=== PATIENT | female | born 1950 | race Caucasian/White ===

== ENCOUNTER → 2018-02-14 08:59 | Outpatient (CLI) | payer MEDICARE, OTHER, SELFPAY ==
[2018-02-14 09:39] LABS: Add Manual Diff / Slide Review NO; Hematocrit 41.9 % (36-46); Hemoglobin 14.3 g/dL (12.0-16.0); Lymphocytes Percent Auto 40.6 % (25-40); Mean Corpuscular HGB Conc 34.1 % (30-36); Mean Corpuscular Hemoglobin 31.7 PG (26-34); Mean Corpuscular Volume 92.9 fL (80-100); Monocytes Percent Auto 10.6 % (3-14); Neutrophils Absolute Auto 1600 /uL (3000-5900); Neutrophils Percent Auto 45.8 % (50-75); Platelet Count 203 X10^3/uL (150-400); Red Blood Cell Count 4.51 X10^6/uL (4.0-5.2); Red Cell Distribution Width 12.8 % (11.6-14.8); White Blood Cell Count 3.4 X10^3/uL (4.5-11.0)
[2018-02-14 09:56] LABS: Alanine Aminotransferase 28 IU/L (9-52); Albumin 4.4 g/dL (3.5-5.0); Albumin Globulin Ratio 1.6 (1.0-2.8); Alkaline Phosphatase 59 U/L (38-126); Aspartate Aminotransferase 26 IU/L (14-36); BUN Creatinine Ratio 24.3 (6-22); Bilirubin Total 0.7 mg/dL (0.2-1.3); Blood Urea Nitrogen 17 mg/dL (7-17); Calcium 9.4 mg/dL (8.4-10.2); Carbon Dioxide 30 mmol/L (22-32); Chloride 101 mmol/L (98-107); Estimated Glomerular Filt Rate > 60.0 mL/min (>60); Globulin 2.8 g/dL (1.7-4.1); Glucose 103 mg/dL (80-110); HEMOLYSIS < 15 (0-50); Potassium 4.8 mmol/L (3.4-5.1); Sodium 140 mmol/L (137-145); Total Protein 7.2 g/dL (6.3-8.2)
== END ==
PROVIDERS: Family Provider Family Medicine; PCP Family Medicine; Visit Provider Specialist
DX: D70.9 Neutropenia, unspecified (principal)
CPT/HCPCS: 36415; 80053; 85025

== ENCOUNTER → 2018-02-22 14:44 | Outpatient (CLI) | payer MEDICARE, OTHER, SELFPAY ==
--- NOTE | 2018-02-22 | DI.MRI.S_ITS ---
PROCEDURE: MR ANKLE LT WO CON INDICATIONS: 67 year-old female with lateral left foot pain since January 29, 2018. TECHNIQUE: Noncontrast sagittal T1 spin echo and T2 fast spin echo with fat saturation, axial proton density fast spin echo and T2 fast spin echo with fat saturation, coronal T1 spin echo and T2 fast spin echo with fat saturation through the ankle/hindfoot. COMPARISON: [facility], CR, XR FOOT 1 OR 2 VIEWS LEFT, 01/30/2018, 15:52. [facility] [place], CR, XR ANKLE 3+ VIEWS LEFT, 01/30/2018, 15:28. [facility] [place], CR, XR FOOT 3+ VIEWS LEFT, 11/07/2017, 9:30. FINDINGS: Skin marker denotes the site of clinical concern. Image quality: Excellent. Bones and joints: No bone marrow contusions or fractures. There is localized marrow edema at the inferolateral aspect of the calcaneocuboid joint. There is patchy bone marrow edema near the medial navicular pole as well. No hindfoot coalitions. No osteochondral injuries of the talar dome. There is patchy talonavicular joint degeneration, with subchondral marrow edema involving the mid navicular body. No pathologic joint effusions. Medial structures: The posterior tibialis, flexor digitorum longus, and flexor hallucis longus tendons are intact. The posterior tibial neurovascular bundle appears normal within the tarsal tunnel, without extrinsic mass effect. The deep layer (anterior and posterior tibiotalar ligaments) and superficial layer (tibionavicular, tibiospring, and tibiocalcaneal ligaments) of the deltoid ligament appear normal. The spring ligament components (superomedial calcaneonavicular, medioplantar oblique calcaneonavicular, and inferoplantar longitudinal ligaments) are intact. Lateral structures: The anterior talofibular, calcaneofibular, and posterior talofibular ligaments appear intact. More superiorly, the anterior and posterior tibiofibular ligaments appear intact, as is the intermalleolar ligament. The tibiofibular syndesmosis is normal in width at 2 mm or less. The peroneus longus and brevis tendons demonstrate normal location and morphology. Adjacent bony peroneal tubercle and retrotrochlear prominence are normal in size. The sinus tarsi demonstrates normal fatty signal, without edema, fibrosis, or cyst formation. Visualized sinus tarsi components (cervical ligament, interosseous talocalcaneal ligament, roots of the inferior extensor retinaculum) appear normal. The calcaneonavicular and calcaneocuboid components of the bifurcate ligament appear intact. The dorsal calcaneocuboid ligament appears intact. Anterior structures: The tibialis anterior, extensor hallucis longus, and extensor digitorum longus tendons appear intact. The dorsal talonavicular ligament appears intact. Posterior and plantar structures: Achilles tendon demonstrates low-grade intrasubstance partial thickness tear within its central portion, extending 1.5 cm up to 4 cm superior to its calcaneal insertion. Medial and lateral bands of the plantar fascia are of normal thickness. No abductor digiti quinti muscle atrophy to suggest Mcmullen neuropathy. IMPRESSION: 1. Patchy bone marrow edema around the calcaneocuboid joint is nonspecific, and may reflect stress reaction or sequelae of evolving joint degeneration. Nearby peroneus longus and brevis tendons both appear intact. 2. Equally nonspecific patchy bone marrow edema near the medial navicular pole. Patchy talonavicular joint degeneration as well, with subchondral marrow edema involving the mid navicular body. 3. Low-grade partial-thickness intrasubstance tear of the distal Achilles tendon. Dictated by: Luis Carlos Feng M.D. on 02/22/2018 at 15:47 Approved by: Luis Carlos Feng M.D. on 02/22/2018 at 16:02
== END ==
PROVIDERS: Family Provider Family Medicine; PCP Family Medicine; Visit Provider Podiatrist
DX: M79.672 Pain in left foot (principal); S86.012A Strain of left Achilles tendon, initial encounter
CPT/HCPCS: 73721

== ENCOUNTER → 2018-02-23 14:59 | Outpatient (CLI) | payer MEDICARE, OTHER, SELFPAY | PROVIDERS: PCP Internal Medicine; Visit Provider Internal Medicine | DX: Z78.0 Asymptomatic menopausal state (principal) | CPT/HCPCS: 77080 ==

== ENCOUNTER 2018-06-05 13:00 | Oncology outpatient (ONC) | payer MEDICARE, OTHER, SELFPAY ==
--- NOTE | 2018-03-05 13:05 | P.PNONC_ITS ---
Assessment and Plan (1) Neutropenia Onset Date: 12/17/15 Current visit: No Status: None 03/05/18 13:04 The patient is a 67 year old Female who is being seen in the clinic 03/05/2018. She carries a diagnosis of chronic neutropenia initially thought to be secondary to nonsteroidal anti-inflammatory use. Neutropenia developed after a complicated knee replacement requiring 2 surgeries. CBC today does demonstrate a very mild neutropenia with a white count of 3.4 ANC 1600 neutrophils 45.8%. Reassuringly patient feels very well. No night sweats. No change in appetite specifically no early satiety. No new pain, no new lumps or bumps. No red flags on exam today whatsoever. I discussed with the patient and her we may never know the etiology of this very mild neutropenia not unlikely she received strong broad-spectrum antibiotics during her 2 knee surgeries. Reassuringly platelets have been normal RBC has been normal hemoglobin and hematocrit also normal. No evidence of bone marrow failure. Return to clinic in 3 months time for provider visit, CBC. 03/05/18 13:40 - Time Spent with Patient 35 mins PN -Subjective Interval history: The patient is a 67 year old Female who is being seen in the clinic 03/05/2018. She carries a diagnosis of chronic neutropenia likely initially thought secondary to heavy NSAID use. She presents today for a 6 month clinical evaluation. During the interval she discontinued her use of Aleve. No new complaints on exam today. Specifically no recent illnesses or infections. No night sweats. No cough, fever, chills. No change with activity tolerance. Appetite is stable, weight is stable. Specifically no early satiety. No new pain. No new lumps or bumps. Overall patient is feeling quite well looking forward to a 1 month vacation to [facility] next month. Past Medical History The patient's past medical history is significant for: 1) Neutropenia, chronic. CBC on 04/18/2014, 12/26/2014, 12/02/2015, 01/18/2016, 03/13/2017, and 2016 (7 days off Alleve) reporting: White blood cell count at 5.4, 3.5, 3.7, 3.7, 3.2, and 4.1 respectively. ANC at 3000, 1900, 1500, 1400, 1700, 2100 respectively. 03/10/2017. Peripheral flow cytometry without significant immunophenotypic abnormalities. 03/13/2017: Sedimentation rate normal at 3, C-reactive protein less than 0.5. Folate and B12 at greater than 20 in 643 respectively. 03/13/2017. Ultrasound of the spleen. No splenomegaly. 2) Aniety/Depression, post knee replacement, improving. 3) Skin cancer, non melanoma. Home Medications and Allergies Home Medications Medication Instructions Recorded Confirmed Type CA PANTOTHENATE/FOLIC ACID/VIT 1 tab PO QDAY #0 10/16/12 History (MULTIVITAMIN) Fish Oil 2,000 mg PO QDAY #0 10/16/12 History [MASSAGE THERAPY] #0 01/09/17 Rx amoxicillin 500 mg PO #0 01/09/17 History aspirin 81 mg PO QDAY #0 01/09/17 History xyjqsqxkmz-oajkvhv-ekvmnwyv 50 1 cap PO PRN PRN #20 cap 01/17/18 Rx mg-325 mg-40 mg capsule [CMP ESTRADIOL ] 0.2 % VAGINAL 2XW #30 gm 01/24/18 Rx cholecalciferol (vitamin D3) 1,000 unit PO DAILY 03/05/18 03/05/18 History [Vitamin D3] chromium picolinate 400 mcg PO DAILY 03/05/18 03/05/18 History glucosamine tran 2KCl-chondroit 1 cap PO DAILY 03/05/18 03/05/18 History [Glucosamine Sulf-Chondroitin] polyethylene glycol 3350 [Miralax] 03/05/18 History Allergies Allergy/AdvReac Type Severity Reaction Status Date / Time No Known Drug Allergies Allergy Unverified 01/24/18 11:37 Exam Narrative: well appearing - Constitutional positive no acute distress - Routine HEENT Exam Eye: Present: EOMI, PERRL, normal accommodation. Absent: scleral injection, conjunctivae pink ENT: Present: mucous membranes moist - Routine Neck Exam Present: supple. Absent: lymphadenopathy - Routine Chest/Breast/Axilla Exam Axillae: Absent: lymphadenopathy, mass, tenderness - Routine Respiratory Exam Present: Clear to auscultation bilaterally - Routine Cardiovascular Exam Present: RRR, S1, S2 - Routine Abdominal Exam Present: soft, normoactive bowel sounds. Absent: tenderness, distended, organomegaly Palpation/Percussion: Absent: hepatomegaly, splenomegaly - Routine Extremities Exam Absent: edema, calf tenderness - Routine Skin Exam Present: intact, normal turgor. Absent: erythema, petechiae, rash - Routine Neurological Exam Present: alert, oriented X3 - Routine Psychiatric Exam Present: normal affect
[2018-03-05 13:08] VITALS: BP 130/88; PULSE 58; RESP 18; TEMP 36.4; O2SAT 97
[2018-06-01 12:53] LABS: Add Manual Diff / Slide Review NO; Basophils Percent Auto 0.7 % (0-2); Eosinophils Percent Auto 1.6 % (2-4); Hematocrit 43.2 % (36-46); Hemoglobin 14.5 g/dL (12.0-16.0); Lymphocytes Percent Auto 37.7 % (25-40); Mean Corpuscular HGB Conc 33.4 % (30-36); Mean Corpuscular Hemoglobin 30.7 PG (26-34); Mean Corpuscular Volume 91.9 fL (80-100); Neutrophils Absolute Auto 2400 /uL (3000-5900); Platelet Count 221 X10^3/uL (150-400); Red Cell Distribution Width 13.3 % (11.6-14.8); White Blood Cell Count 4.8 X10^3/uL (4.5-11.0)
[2018-06-05 13:25] VITALS: BP 128/74; PULSE 67; RESP 18; TEMP 36.4; O2SAT 100
--- NOTE | 2018-06-05 13:27 | ONC.PN ---
PN -Subjective Interval history: Diagnosis: Neutropenia, presumed medication related Previous treatment: None Interval history: The patient is a 67 year old Female who is being seen in the clinic for follow-up of a chronic neutropenia. She initially presented following knee replacement surgery in 2002. There is no obvious etiology for her cytopenias in it was presumed due to NSAIDs. However, despite stopping the medications, her of a neutrophil count has remained low. Fortunately, she has not had any infectious complications. She denies any fevers chills or sweats. No shortness of breath or cough. She has not had any unusual bleeding or bruising. Overall, she feels quite well. She reports that she and her have just returned from a trip to [place] and [place]. Her medications include amoxicillin which she takes prior to dental work. She also takes aspirin and medication for migraine headaches as needed. She takes several supplements but no other prescriptions. Her family history is negative for cytopenias or neutropenia. She does have a grandmother had leukemia. 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 She does not smoke but does drink some wine. Past Medical History The patient's past medical history is significant for: 1) Neutropenia, chronic. CBC on 04/18/2014, 12/26/2014, 12/02/2015, 01/18/2016, 03/13/2017, and 03/28/2017 (7 days off Alleve) reporting: White blood cell count at 5.4, 3.5, 3.7, 3.7, 3.2, and 4.1 respectively. ANC at 3000, 1900, 1500, 1400, 1700, 2100 respectively. 03/10/2017. Peripheral flow cytometry without significant immunophenotypic abnormalities. 03/13/2017: Sedimentation rate normal at 3, C-reactive protein less than 0.5. Folate and B12 at greater than 20 in 643 respectively. 03/13/2017. Ultrasound of the spleen. No splenomegaly. 2) Aniety/Depression, post knee replacement, improving. 3) Skin cancer, non melanoma. She has had prior knee replacement surgery with a revision. Home Medications and Allergies Home Medications Medication Instructions Recorded Confirmed Type CA PANTOTHENATE/FOLIC ACID/VIT 1 tab PO QDAY #0 10/16/12 History (MULTIVITAMIN) Fish Oil 2,000 mg PO QDAY #0 10/16/12 History [MASSAGE THERAPY] #0 01/09/17 Rx amoxicillin 500 mg PO #0 01/09/17 History aspirin 81 mg PO QDAY #0 01/09/17 History xisuexzmvq-fpdyimv-wengmnbc 50 1 cap PO PRN PRN #20 cap 01/17/18 Rx mg-325 mg-40 mg capsule [CMP ESTRADIOL ] 0.2 % VAGINAL 2XW #30 gm 01/24/18 Rx cholecalciferol (vitamin D3) 1,000 unit PO DAILY 03/05/18 03/05/18 History [Vitamin D3] chromium picolinate 400 mcg PO DAILY 03/05/18 03/05/18 History glucosamine tran 2KCl-chondroit 1 cap PO DAILY 03/05/18 03/05/18 History [Glucosamine Sulf-Chondroitin] polyethylene glycol 3350 [Miralax] 03/05/18 History Allergies Allergy/AdvReac Type Severity Reaction Status Date / Time No Known Drug Allergies Allergy Unverified 01/24/18 11:37 Exam Vital signs: Last Vital Signs Temp 97.6 F 06/05/18 13:25 Pulse 67 06/05/18 13:25 Resp 18 06/05/18 13:25 BP 128/74 06/05/18 13:25 Pulse Ox 100 06/05/18 13:25 - Constitutional positive no acute distress, positive average body habitus - Routine HEENT Exam Head: Present: normocephalic, atraumatic Eye: Present: EOMI, PERRL. Absent: conjunctival icterus, scleral injection ENT: Present: mucous membranes moist, oropharynx clear - Routine Neck Exam Present: supple. Absent: lymphadenopathy, thyromegaly - Routine Respiratory Exam Present: Clear to auscultation bilaterally. Absent: rales, wheezes - Routine Cardiovascular Exam Present: RRR, S1, S2. Absent: murmur - Routine Abdominal Exam Present: soft, normoactive bowel sounds. Absent: tenderness, organomegaly, mass - Routine Extremities Exam Absent: cyanosis, clubbing, edema - Routine Skin Exam Present: intact. Absent: petechiae, rash - Routine Neurological Exam Present: alert, oriented X3 - Routine Psychiatric Exam Present: normal affect, normal thought process Results - Labs Laboratory Last Values WBC 4.8 X10^3/uL (4.5-11.0) 06/01/18 12:35 RBC 4.70 X10^6/uL (4.0-5.2) 06/01/18 12:35 Hgb 14.5 g/dL (12.0-16.0) 06/01/18 12:35 Hct 43.2 % (36-46) 06/01/18 12:35 MCV 91.9 fL (80-100) 06/01/18 12:35 MCH 30.7 PG (26-34) 06/01/18 12:35 MCHC 33.4 % (30-36) 06/01/18 12:35 RDW 13.3 % (11.6-14.8) 06/01/18 12:35 Plt Count 221 X10^3/uL (150-400) 06/01/18 12:35 Neut % (Auto) 51.0 % (50-75) 06/01/18 12:35 Lymph % (Auto) 37.7 % (25-40) 06/01/18 12:35 [place] % (Auto) 9.0 % (3-14) 06/01/18 12:35 Eos % (Auto) 1.6 % (2-4) L 06/01/18 12:35 Baso % (Auto) 0.7 % (0-2) 06/01/18 12:35 Neut # (Auto) 2400 /uL (2006-2720) L 06/01/18 12:35 Assessment and Plan (1) Neutropenia Onset Date: 12/17/15 Problem details: 67-year-old woman with chronic neutropenia. She fortunately has not had any infectious complications or symptoms related to this. It is possible that it is related to her previous medications although I would expect her counts to improve after stopping. I do not think any further testing or intervention is needed at this point. We will discontinue to follow her expectantly. We will plan on checking her back in about a year so but sooner should her counts change. Current visit: No Status: None
--- NOTE | 2018-06-05 13:32 | P.PNONC_ITS ---
PN -Subjective Interval history: Diagnosis: Neutropenia, presumed medication related Previous treatment: None Interval history: The patient is a 67 year old Female who is being seen in the clinic for follow- up of a chronic neutropenia. She initially presented following knee replacement surgery in 2002. There is no obvious etiology for her cytopenias in it was presumed due to NSAIDs. However, despite stopping the medications, her of a neutrophil count has remained low. Fortunately, she has not had any infectious complications. She denies any fevers chills or sweats. No shortness of breath or cough. She has not had any unusual bleeding or bruising. Overall, she feels quite well. She reports that she and her have just returned from a trip to [place] and [place]. Her medications include amoxicillin which she takes prior to dental work. She also takes aspirin and medication for migraine headaches as needed. She takes several supplements but no other prescriptions. Her family history is negative for cytopenias or neutropenia. She does have a grandmother had leukemia. Social history: She is . A retired medical assistant secretary. She does not smoke but does drink some wine. Past Medical History The patient's past medical history is significant for: 1) Neutropenia, chronic. CBC on 04/18/2014, 12/26/2014, 12/02/2015, 01/18/2016, 03/13/2017, and 2016 (7 days off Alleve) reporting: White blood cell count at 5.4, 3.5, 3.7, 3.7, 3.2, and 4.1 respectively. ANC at 3000, 1900, 1500, 1400, 1700, 2100 respectively. 03/10/2017. Peripheral flow cytometry without significant immunophenotypic abnormalities. 03/13/2017: Sedimentation rate normal at 3, C-reactive protein less than 0.5. Folate and B12 at greater than 20 in 643 respectively. 03/13/2017. Ultrasound of the spleen. No splenomegaly. 2) Aniety/Depression, post knee replacement, improving. 3) Skin cancer, non melanoma. She has had prior knee replacement surgery with a revision. Home Medications and Allergies Home Medications Medication Instructions Recorded Confirmed Type CA PANTOTHENATE/FOLIC ACID/VIT 1 tab PO QDAY #0 10/16/12 History (MULTIVITAMIN) Fish Oil 2,000 mg PO QDAY #0 10/16/12 History [MASSAGE THERAPY] #0 01/09/17 Rx amoxicillin 500 mg PO #0 01/09/17 History aspirin 81 mg PO QDAY #0 01/09/17 History nizkfgvydy-ifcujit-rbugyehd 50 1 cap PO PRN PRN #20 cap 01/17/18 Rx mg-325 mg-40 mg capsule [CMP ESTRADIOL ] 0.2 % VAGINAL 2XW #30 gm 01/24/18 Rx cholecalciferol (vitamin D3) 1,000 unit PO DAILY 03/05/18 03/05/18 History [Vitamin D3] chromium picolinate 400 mcg PO DAILY 03/05/18 03/05/18 History glucosamine tran 2KCl-chondroit 1 cap PO DAILY 03/05/18 03/05/18 History [Glucosamine Sulf-Chondroitin] polyethylene glycol 3350 [Miralax] 03/05/18 History Allergies Allergy/AdvReac Type Severity Reaction Status Date / Time No Known Drug Allergies Allergy Unverified 01/24/18 11:37 Exam Vital signs: Last Vital Signs Temp 97.6 F 06/05/18 13:25 Pulse 67 06/05/18 13:25 Resp 18 06/05/18 13:25 BP 128/74 06/05/18 13:25 Pulse Ox 100 06/05/18 13:25 - Constitutional positive no acute distress, positive average body habitus - Routine HEENT Exam Head: Present: normocephalic, atraumatic Eye: Present: EOMI, PERRL. Absent: conjunctival icterus, scleral injection ENT: Present: mucous membranes moist, oropharynx clear - Routine Neck Exam Present: supple. Absent: lymphadenopathy, thyromegaly - Routine Respiratory Exam Present: Clear to auscultation bilaterally. Absent: rales, wheezes - Routine Cardiovascular Exam Present: RRR, S1, S2. Absent: murmur - Routine Abdominal Exam Present: soft, normoactive bowel sounds. Absent: tenderness, organomegaly, mass - Routine Extremities Exam Absent: cyanosis, clubbing, edema - Routine Skin Exam Present: intact. Absent: petechiae, rash - Routine Neurological Exam Present: alert, oriented X3 - Routine Psychiatric Exam Present: normal affect, normal thought process Results - Labs Laboratory Last Values WBC 4.8 X10^3/uL (4.5-11.0) 06/01/18 12:35 RBC 4.70 X10^6/uL (4.0-5.2) 06/01/18 12:35 Hgb 14.5 g/dL (12.0-16.0) 06/01/18 12:35 Hct 43.2 % (36-46) 06/01/18 12:35 MCV 91.9 fL (80-100) 06/01/18 12:35 MCH 30.7 PG (26-34) 06/01/18 12:35 MCHC 33.4 % (30-36) 06/01/18 12:35 RDW 13.3 % (11.6-14.8) 06/01/18 12:35 Plt Count 221 X10^3/uL (150-400) 06/01/18 12:35 Neut % (Auto) 51.0 % (50-75) 06/01/18 12:35 Lymph % (Auto) 37.7 % (25-40) 06/01/18 12:35 [place] % (Auto) 9.0 % (3-14) 06/01/18 12:35 Eos % (Auto) 1.6 % (2-4) L 06/01/18 12:35 Baso % (Auto) 0.7 % (0-2) 06/01/18 12:35 Neut # (Auto) 2400 /uL (2375-1390) L 06/01/18 12:35 Assessment and Plan (1) Neutropenia Onset Date: 12/17/15 Problem details: 67-year-old woman with chronic neutropenia. She fortunately has not had any infectious complications or symptoms related to this. It is possible that it is related to her previous medications although I would expect her counts to improve after stopping. I do not think any further testing or intervention is needed at this point. We will discontinue to follow her expectantly. We will plan on checking her back in about a year so but sooner should her counts change. Current visit: No Status: None
== END 2018-06-06 12:00 ==
PROVIDERS: PCP Internal Medicine; Visit Provider Nurse Practitioner Gerontology
DX: D70.9 Neutropenia, unspecified (principal); Z85.828 Personal history of other malignant neoplasm of skin
CPT/HCPCS: 36415; 85025; 99214

== ENCOUNTER → 2018-11-15 09:20 | Outpatient (CLI) | payer MEDICARE, OTHER, SELFPAY ==
--- NOTE | 2018-11-15 | DI.MG.S_ITS ---
BILATERAL DIGITAL SCREENING MAMMOGRAM 3D/2D WITH CAD: 11/15/2018 CLINICAL: Routine screening. Family history of breast cancer. Comparison is made to exams dated: 11/13/2017 mammogram, 10/24/2016 mammogram, and 12/07/2015 mammogram - [facility]. There are scattered fibroglandular elements in both breasts. Current study was also evaluated with a Computer Aided Detection (CAD) system. No significant masses, calcifications, or other findings are seen in either breast. There has been no significant interval change. IMPRESSION: NEGATIVE There is no mammographic evidence of malignancy. A 1 year screening mammogram is recommended. This exam was interpreted at Station ID: [id number]. NOTE: For mammograms, a report in lay terms will be sent to the patient. Approximately 15% of breast malignancies will not be visualized mammographically. In the management of a palpable breast mass, a negative mammogram must not discourage biopsy of a clinically suspicious lesion. Electronically Signed By: Juan F pena/alvaro:11/15/2018 10:58:08 copy to: Nic Ennis letter sent: Normal Exam ACR BI-RADS Category 1: Negative [id number]
== END ==
PROVIDERS: PCP Family Medicine; Visit Provider Obstetrics & Gynecology
DX: Z12.31 Encounter for screening mammogram for malignant neoplasm of breast (principal); Z80.3 Family history of malignant neoplasm of breast
CPT/HCPCS: 77063; 77067

== ENCOUNTER 2018-12-03 13:45 | Outpatient (RCR) | payer MEDICARE, OTHER, SELFPAY ==
--- NOTE | 2018-09-26 16:50 | PT.OIE ---
Current Diagnoses Radiculopathy, lumbar region (09/26/18) Past Medical History (Last Updated 05/11/18 @ 11:18 by Haley Germain) Anxiety (Chronic 2013) Bilateral knee pain (Chronic 2006) Constipation (Chronic) Depression (Chronic) Dry eyes (Chronic) Heart disease (Chronic) Hemorrhoids (Chronic 1978) History of headache (Chronic 1974) Migraine (Chronic 1974) Milium (Chronic) Osteoarthritis (Chronic) Photoaging of skin (Chronic) Seborrheic keratoses (Chronic) Shoulder pain (Chronic 2010) Solar elastosis (Chronic) Actinic keratosis (Resolved 10/2013) Chicken pox (Resolved Unknown) Colon polyps (Resolved 2004) Fibroids (Resolved 1986) History of irregular menstrual cycles (Resolved ) Measles (Resolved Unknown) Precancerous skin lesion (Resolved 2009) Past Surgical History (Last Updated 05/11/18 @ 11:18 by Haley Germain) History of knee replacement (Resolved 05/21/14) Status post arthroscopy (Resolved 12/11/09) Status post arthroscopy (Resolved 11/04/14) Status post breast biopsy (Resolved 2008) Status post hysterectomy (Resolved 01/1991) Provider Visit Care Team Role Provider Type Angus Jernigan MD Primary Care Provider Non-Staff Specialty: Family Practice Address: [address] [place] [address], [facility] [address], [place], [address] Email: Other Providers Specialty: Address: Phone: Fax: Email: Isaiah Hobbs MD Attending Provider Non-Staff Specialty: Orthopedic Surgery Address: [address] [place] [address], [address], [place], [address] Email: Physical Therapy Initial Evaluation PT-OP-A Visit Information Start: 09/26/18 13:01 Freq: Status: Active Protocol: Document 09/26/18 14:30 AMB (Rec: 09/26/18 16:16 AMB [email or web address]) Out-Patient Physical Therapy Visit Information Visit Information Visit Type Initial Evaluation Visit Start Time 14:30 Visit Stop Time 15:15 Total Visit Minutes 45 Visit Number 1 PT-OP-B Current Condition Start: 09/26/18 13:01 Freq: Status: Active Protocol: Document 09/26/18 14:30 AMB (Rec: 09/26/18 16:16 AMB [email or web address]) Current Condition History of Current Condition Onset Date 1 month ago Current Complaints L knee pain that radiates into hip and numbness into lower leg History of Current Condition Burning and sparking pain in lateral thigh and posterior hip that can go into anterior leg but not into foot has been present for one month. Started in the evening after working out (treadmill, weights, supine ball exercise) but exercise felt good while she was doing it but pain started that evening. Wakes up at night due to the pain. Hurts the most in the medial knee. Knee can feel swollen. Prior Treatments and Tests Saw knee doctor in [place] who says her X-ray is fine and thinks it is coming from her back. Treatment Goals Patient/Caregiver Goals Return to walking Prior Functional Status Baseline Function- Recreation/Hobbies Walking 3-4 miles 4x/week Current Functional Impairments (Reported) Functional Limitations- ADL's Difficulty sleeping, sitting, walking due to pain in knee. Personal Factors Other Personal Factors That May Effect Pt's is undergoing Therapy/Recovery back surgery in 12 days. History of TKA with revision on the left 5 years ago. PT-OP-C Subjective Start: 09/26/18 13:01 Freq: Status: Active Protocol: Document 09/26/18 14:30 AMB (Rec: 09/26/18 16:16 AMB [email or web address]) OP-PT Subjective Patient Comments Patient Comments Pain comes and goes but overall has not been getting worse or better. Patient Questionnaires Oswestry Low Back Index Oswestry Score 20 Oswestry Impairment 20 to 39% Impaired (Score 20- 39) OP-PT Pain Assessment Pain Assessment Grid Paper Pain Assessment Grid Completed Yes Location Left Leg Intensity 7 Scale Used Numeric (1 - 10) Description Aching PT-OP-G Mobility & Gait Start: 09/26/18 13:01 Freq: Status: Active Protocol: Document 09/26/18 14:30 AMB (Rec: 09/26/18 16:31 AMB [email or web address]) OP Gait Assessment Comments Gait Comments Pt ambulating well when not painful, slight restriction in trunk rotation. PT-OP-J Posture/Palpation/Skin Start: 09/26/18 13:01 Freq: Status: Active Protocol: Document 09/26/18 14:30 AMB (Rec: 09/26/18 16:31 AMB [email or web address]) Posture Evaluation Comments Posture Comments Stands with right shoulder high. Mild increased thoracic kyphosis and lumbar lordosis. Palpation Assessment Location One Palpation Location Left leg Palpation Findings Soft Tissue Tightness Muscle Guarding Tenderness Palpation Details Tenderness and tightness L>R at piriformis and IT band. No pain with fibular mobilization. Tightness into knee flexion but this is baseline for the patient s/p TKA. Mildly tender with PAs through lumbar and sacrum, does not radiate. PT-OP-K Range of Motion Start: 09/26/18 13:01 Freq: Status: Active Protocol: Document 09/26/18 14:30 AMB (Rec: 09/26/18 16:31 AMB [email or web address]) Lumbar Spine Range of Motion Lumbar Spine Active Percentage Testing Position Standing Flexion 100 Extension 25 Lateral Flexion Left 50 Lateral Flexion Right 75 Comments pain with extension, stiffness with sidebending bilaterally Hip Goniometric Range of Motion Hip ROM Limitations Comments AROM WNL bilat Knee Goniometric Range of Motion Knee ROM Limitations Comments Extension WNL, flexion limited by TKA to approx 110. PT-OP-L Special Tests Start: 09/26/18 13:01 Freq: Status: Active Protocol: Document 09/26/18 14:30 AMB (Rec: 09/26/18 16:31 AMB [email or web address]) Special Tests Lumbar Spine Special Tests Manual Traction Test Results positive for reduction in pain Straight Leg Raise Test Results negative for increase in pain PT-OP-M Strength Start: 09/26/18 13:01 Freq: Status: Active Protocol: Document 09/26/18 14:30 AMB (Rec: 09/26/18 16:31 AMB [email or web address]) Hip Strength Hip Manual Muscle Testing Right Flexion (L2) 5 Normal Extension (S1) 4 Good Abduction 4+ Good+ Left Flexion (L2) 4+ Good+ Extension (S1) 4- Good- Abduction 4+ Good+ Knee Strength Knee Manual Muscle Testing Right Flexion (S2) 5 Normal Extension (L3) 5 Normal Left Flexion (S2) 5 Normal Extension (L3) 5 Normal PT-OP-Q Treatments Start: 09/26/18 13:01 Freq: Status: Active Protocol: Document 09/26/18 14:30 AMB (Rec: 09/26/18 16:21 AMB [email or web address]) Therapeutic Exercises Supine Exercises 3 Supine Exercise Name lower trunk rotation Reps/Minutes 10 2 Supine Exercise Name TrA march Reps/Minutes 30x2 1 Supine Exercise Name IT band stretch Comments with band PT-OP-T Assessment and Plan Start: 09/26/18 13:01 Freq: Status: Active Protocol: Document 09/26/18 14:30 AMB (Rec: 09/26/18 16:49 AMB [email or web address]) Physical Therapy Assessment Rehab Potential Rehabilitation Potential Good Evaluation Complexity Number of Personal Factors/Comorbidities 1-2 Number of Body Systems Impaired 4 or More Clinical Presentation at Evaluation Evolving Impairments Impairments Functional Activities Pain Posture ROM Soft Tissue Mobility Strength Goals Four Impairment positional tolerance Short Term Goal (STG) The patient will sit for 1 hour with leg pain of 4/10 or less. STG Duration 4 weeks Fabricator Artificial Breast Goal (LTG) The patient will sleep for 6 hours without waking due to pain. LTG Duration 8 weeks Three Impairment body mechanics Short Term Goal (STG) The patient will assist her with bed mobility s/p his lumbar surgery with good body mechanics without an increase in pain. STG Duration 4 weeks Custodial Goal (LTG) The patient will perform a squat with good body mechanics to lift 10 pounds without an increase in pain. LTG Duration 8 weeks Two Impairment gait Short Term Goal (STG) The patient will ambulate for 15 minutes with pain of 4/10 or less. STG Duration 4 weeks Custodial Goal (LTG) The patient will ambulate for 2 miles with pain of 4/10 or less. LTG Duration 8 weeks One Impairment ROM Assessment Summary Assessment The patient presents with L LE pain that is intermittent in nature. Worst at the knee, but with a burning component in the lateral thigh and anterior leg. She also describes piriformis tightness and a history of sciatica on and off since she was in 1979. No testing of the knee reproduced her symptoms, but spinal extension and palpation of the piriformis and IT band did. She presents with good hip mobility ( restricted lumbar into extension), but weakness at hip extension and at core. She will benefit from PT to reduce her radicular pain and then stabilize to get her back to her previous function of walking without pain. Physical Therapy Plan Frequency and Duration Frequency of Treatment 2x/Week Duration of Treatment 8 weeks Plan of Care Start Date 09/26/18 Plan of Care End Date 11/21/18 Therapeutic Interventions Therapeutic Interventions Aquatic Therapy Home Exercise Program Joint Mobilizations Manual Therapy Neuromuscular Re-education Self-Care/Home Management Therapeutic Activities Therapeutic Exercises Modalities Cold Pack/Ice Massage Electric Stimulation Hot Packs Traction- Mechanical Next Visit Focus/Plan Next Note Type Treatment Note Next Visit Plan Progress core stabilization, piriformis stretch, manual therapy as needed for hip/low back tightness.
--- NOTE | 2018-09-26 16:51 | PT.OPPOC ---
Current Diagnoses Radiculopathy, lumbar region (09/26/18) Provider Visit Care Team Role Provider Type Angus Jernigan MD Primary Care Provider Non-Staff Specialty: Family Practice Address: [address] [facility], [address], [place], [address] Email: Other Providers Specialty: Address: Phone: Fax: Email: Isaiah Hobbs MD Attending Provider Non-Staff Specialty: Orthopedic Surgery Address: [address], [address], [place], [address] Email: Plan Of Care PT-OP-T Assessment and Plan Start: 09/26/18 13:01 Freq: Status: Active Protocol: Document 09/26/18 14:30 AMB (Rec: 09/26/18 16:49 AMB [email or web address]) Physical Therapy Assessment Rehab Potential Rehabilitation Potential Good Evaluation Complexity Number of Personal Factors/Comorbidities 1-2 Number of Body Systems Impaired 4 or More Clinical Presentation at Evaluation Evolving Impairments Impairments Functional Activities Pain Posture ROM Soft Tissue Mobility Strength Goals Four Impairment positional tolerance Short Term Goal (STG) The patient will sit for 1 hour with leg pain of 4/10 or less. STG Duration 4 weeks Lens Gauger Goal (LTG) The patient will sleep for 6 hours without waking due to pain. LTG Duration 8 weeks Three Impairment body mechanics Short Term Goal (STG) The patient will assist her with bed mobility s/p his lumbar surgery with good body mechanics without an increase in pain. STG Duration 4 weeks Lens Gauger Goal (LTG) The patient will perform a squat with good body mechanics to lift 10 pounds without an increase in pain. LTG Duration 8 weeks Two Impairment gait Short Term Goal (STG) The patient will ambulate for 15 minutes with pain of 4/10 or less. STG Duration 4 weeks Lens Gauger Goal (LTG) The patient will ambulate for 2 miles with pain of 4/10 or less. LTG Duration 8 weeks One Impairment ROM Assessment Summary Assessment The patient presents with L LE pain that is intermittent in nature. Worst at the knee, but with a burning component in the lateral thigh and anterior leg. She also describes piriformis tightness and a history of sciatica on and off since she was in 1979. No testing of the knee reproduced her symptoms, but spinal extension and palpation of the piriformis and IT band did. She presents with good hip mobility ( restricted lumbar into extension), but weakness at hip extension and at core. She will benefit from PT to reduce her radicular pain and then stabilize to get her back to her previous function of walking without pain. Physical Therapy Plan Frequency and Duration Frequency of Treatment 2x/Week Duration of Treatment 8 weeks Plan of Care Start Date 09/26/18 Plan of Care End Date 11/21/18 Therapeutic Interventions Therapeutic Interventions Aquatic Therapy Home Exercise Program Joint Mobilizations Manual Therapy Neuromuscular Re-education Self-Care/Home Management Therapeutic Activities Therapeutic Exercises Modalities Cold Pack/Ice Massage Electric Stimulation Hot Packs Traction- Mechanical Next Visit Focus/Plan Next Note Type Treatment Note Next Visit Plan Progress core stabilization, piriformis stretch, manual therapy as needed for hip/low back tightness. Plan of Care Dates Plan of Care Start Date 09/26/18 Plan of Care End Date 11/21/18 Please Sign and Return: I have reviewed this Plan of Care and certify that the skilled therapy services above are required to meet the patient?s needs. Physician Signature Date Printed Name and Credentials Clinical Instructor Signature Printed Name and Credentials
--- NOTE | 2018-09-28 10:30 | PT.OTN ---
Current Diagnoses Radiculopathy, lumbar region (09/28/18) Physical Therapy Treatment Note PT-OP-A Visit Information Start: 09/26/18 13:01 Freq: Status: Active Protocol: Document 09/28/18 07:30 AMB (Rec: 09/28/18 07:49 AMB [id number]) Out-Patient Physical Therapy Visit Information Visit Information Visit Type Treatment Note Visit Start Time 07:30 Visit Stop Time 08:15 Total Visit Minutes 45 Visit Number 2 PT-OP-B Current Condition Start: 09/26/18 13:01 Freq: Status: Active Protocol: Document 09/26/18 14:30 AMB (Rec: 09/26/18 16:16 AMB [email or web address]) Current Condition History of Current Condition Onset Date 1 month ago Current Complaints L knee pain that radiates into hip and numbness into lower leg History of Current Condition Burning and sparking pain in lateral thigh and posterior hip that can go into anterior leg but not into foot has been present for one month. Started in the evening after working out (treadmill, weights, supine ball exercise) but exercise felt good while she was doing it but pain started that evening. Wakes up at night due to the pain. Hurts the most in the medial knee. Knee can feel swollen. Prior Treatments and Tests Saw knee doctor in [place] who says her X-ray is fine and thinks it is coming from her back. Treatment Goals Patient/Caregiver Goals Return to walking Prior Functional Status Baseline Function- Recreation/Hobbies Walking 3-4 miles 4x/week Current Functional Impairments (Reported) Functional Limitations- ADL's Difficulty sleeping, sitting, walking due to pain in knee. Personal Factors Other Personal Factors That May Effect Pt's is undergoing Therapy/Recovery back surgery in 12 days. History of TKA with revision on the left 5 years ago. PT-OP-C Subjective Start: 09/26/18 13:01 Freq: Status: Active Protocol: Document 09/28/18 07:30 AMB (Rec: 09/28/18 07:49 AMB [email or web address]) OP-PT Subjective Patient Comments Patient Comments Pt noticed increased sciatica sx after IT band stretch. But slept well last night. PT-OP-G Mobility & Gait Start: 09/26/18 13:01 Freq: Status: Active Protocol: Document 09/26/18 14:30 AMB (Rec: 09/26/18 16:31 AMB [email or web address]) OP Gait Assessment Comments Gait Comments Pt ambulating well when not painful, slight restriction in trunk rotation. PT-OP-J Posture/Palpation/Skin Start: 09/26/18 13:01 Freq: Status: Active Protocol: Document 09/26/18 14:30 AMB (Rec: 09/26/18 16:31 AMB [email or web address]) Posture Evaluation Comments Posture Comments Stands with right shoulder high. Mild increased thoracic kyphosis and lumbar lordosis. Palpation Assessment Location One Palpation Location Left leg Palpation Findings Soft Tissue Tightness Muscle Guarding Tenderness Palpation Details Tenderness and tightness L>R at piriformis and IT band. No pain with fibular mobilization. Tightness into knee flexion but this is baseline for the patient s/p TKA. Mildly tender with PAs through lumbar and sacrum, does not radiate. PT-OP-K Range of Motion Start: 09/26/18 13:01 Freq: Status: Active Protocol: Document 09/26/18 14:30 AMB (Rec: 09/26/18 16:31 AMB [email or web address]) Lumbar Spine Range of Motion Lumbar Spine Active Percentage Testing Position Standing Flexion 100 Extension 25 Lateral Flexion Left 50 Lateral Flexion Right 75 Comments pain with extension, stiffness with sidebending bilaterally Hip Goniometric Range of Motion Hip ROM Limitations Comments AROM WNL bilat Knee Goniometric Range of Motion Knee ROM Limitations Comments Extension WNL, flexion limited by TKA to approx 110. PT-OP-L Special Tests Start: 09/26/18 13:01 Freq: Status: Active Protocol: Document 09/26/18 14:30 AMB (Rec: 09/26/18 16:31 AMB [email or web address]) Special Tests Lumbar Spine Special Tests Manual Traction Test Results positive for reduction in pain Straight Leg Raise Test Results negative for increase in pain PT-OP-M Strength Start: 09/26/18 13:01 Freq: Status: Active Protocol: Document 09/26/18 14:30 AMB (Rec: 09/26/18 16:31 AMB [email or web address]) Hip Strength Hip Manual Muscle Testing Right Flexion (L2) 5 Normal Extension (S1) 4 Good Abduction 4+ Good+ Left Flexion (L2) 4+ Good+ Extension (S1) 4- Good- Abduction 4+ Good+ Knee Strength Knee Manual Muscle Testing Right Flexion (S2) 5 Normal Extension (L3) 5 Normal Left Flexion (S2) 5 Normal Extension (L3) 5 Normal PT-OP-Q Treatments Start: 09/26/18 13:01 Freq: Status: Active Protocol: Document 09/28/18 07:30 AMB (Rec: 09/28/18 10:30 AMB [email or web address]) Cardio Equipment Recumbent Bicycle Duration (Minutes) 8 Resistance 2 Gym Equipment Shuttle Recovery Bilateral Squats Resistance 50 Shuttle Recovery Platform Stable Therapeutic Exercises Supine Exercises 4 Supine Exercise Name bridges Reps/Minutes 2x10 5 Supine Exercise Name piriformis stretch Reps/Minutes 30x2 3 Supine Exercise Name lower trunk rotation Reps/Minutes 10 2 Supine Exercise Name TrA march Reps/Minutes 30x2 1 Supine Exercise Name IT band stretch Comments with band Therapeutic Activity Therapeutic Activity 1 Name Body mechanics of assisting after surgery Comments Gait belt placement, active squat, trying not to pull on him, more for safety. PT-OP-T Assessment and Plan Start: 09/26/18 13:01 Freq: Status: Active Protocol: Document 09/28/18 07:30 AMB (Rec: 09/28/18 10:30 AMB [email or web address]) Physical Therapy Assessment Assessment Summary Assessment Pt was having a good day today , did not progress exercises excessively to see how she tolerates them, but if continuing to have good days will progress exercises next visit. Physical Therapy Plan Next Visit Focus/Plan Next Note Type Treatment Note Next Visit Plan Progress core stabilization, piriformis stretch, manual therapy as needed for hip/low back tightness.
--- NOTE | 2018-10-02 08:39 | PT.OTN ---
Current Diagnoses Radiculopathy, lumbar region (10/02/18) Physical Therapy Treatment Note PT-OP-A Visit Information Start: 09/26/18 13:01 Freq: Status: Active Protocol: Document 10/02/18 07:30 AMB (Rec: 10/02/18 08:38 AMB [email or web address]) Out-Patient Physical Therapy Visit Information Visit Information Visit Type Treatment Note Visit Start Time 07:30 Visit Stop Time 08:15 Total Visit Minutes 45 Visit Number 3 PT-OP-B Current Condition Start: 09/26/18 13:01 Freq: Status: Active Protocol: Document 09/26/18 14:30 AMB (Rec: 09/26/18 16:16 AMB [email or web address]) Current Condition History of Current Condition Onset Date 1 month ago Current Complaints L knee pain that radiates into hip and numbness into lower leg History of Current Condition Burning and sparking pain in lateral thigh and posterior hip that can go into anterior leg but not into foot has been present for one month. Started in the evening after working out (treadmill, weights, supine ball exercise) but exercise felt good while she was doing it but pain started that evening. Wakes up at night due to the pain. Hurts the most in the medial knee. Knee can feel swollen. Prior Treatments and Tests Saw knee doctor in [place] who says her X-ray is fine and thinks it is coming from her back. Treatment Goals Patient/Caregiver Goals Return to walking Prior Functional Status Baseline Function- Recreation/Hobbies Walking 3-4 miles 4x/week Current Functional Impairments (Reported) Functional Limitations- ADL's Difficulty sleeping, sitting, walking due to pain in knee. Personal Factors Other Personal Factors That May Effect Pt's is undergoing Therapy/Recovery back surgery in 12 days. History of TKA with revision on the left 5 years ago. PT-OP-C Subjective Start: 09/26/18 13:01 Freq: Status: Active Protocol: Document 10/02/18 07:30 AMB (Rec: 10/02/18 08:38 AMB [email or web address]) OP-PT Subjective Patient Comments Patient Comments Pt notes increased pain in her L hips (sciatica) after sleeping in her bed last night . she has been at friends houses and didn't have pain in their beds over the weekend. Overall decreasing pain and less tingling, but pressure at knee remains. PT-OP-G Mobility & Gait Start: 09/26/18 13:01 Freq: Status: Active Protocol: Document 09/26/18 14:30 AMB (Rec: 09/26/18 16:31 AMB [email or web address]) OP Gait Assessment Comments Gait Comments Pt ambulating well when not painful, slight restriction in trunk rotation. PT-OP-J Posture/Palpation/Skin Start: 09/26/18 13:01 Freq: Status: Active Protocol: Document 09/26/18 14:30 AMB (Rec: 09/26/18 16:31 AMB [email or web address]) Posture Evaluation Comments Posture Comments Stands with right shoulder high. Mild increased thoracic kyphosis and lumbar lordosis. Palpation Assessment Location One Palpation Location Left leg Palpation Findings Soft Tissue Tightness Muscle Guarding Tenderness Palpation Details Tenderness and tightness L>R at piriformis and IT band. No pain with fibular mobilization. Tightness into knee flexion but this is baseline for the patient s/p TKA. Mildly tender with PAs through lumbar and sacrum, does not radiate. PT-OP-K Range of Motion Start: 09/26/18 13:01 Freq: Status: Active Protocol: Document 09/26/18 14:30 AMB (Rec: 09/26/18 16:31 AMB [email or web address]) Lumbar Spine Range of Motion Lumbar Spine Active Percentage Testing Position Standing Flexion 100 Extension 25 Lateral Flexion Left 50 Lateral Flexion Right 75 Comments pain with extension, stiffness with sidebending bilaterally Hip Goniometric Range of Motion Hip ROM Limitations Comments AROM WNL bilat Knee Goniometric Range of Motion Knee ROM Limitations Comments Extension WNL, flexion limited by TKA to approx 110. PT-OP-L Special Tests Start: 09/26/18 13:01 Freq: Status: Active Protocol: Document 09/26/18 14:30 AMB (Rec: 09/26/18 16:31 AMB [email or web address]) Special Tests Lumbar Spine Special Tests Manual Traction Test Results positive for reduction in pain Straight Leg Raise Test Results negative for increase in pain PT-OP-M Strength Start: 09/26/18 13:01 Freq: Status: Active Protocol: Document 09/26/18 14:30 AMB (Rec: 09/26/18 16:31 AMB [email or web address]) Hip Strength Hip Manual Muscle Testing Right Flexion (L2) 5 Normal Extension (S1) 4 Good Abduction 4+ Good+ Left Flexion (L2) 4+ Good+ Extension (S1) 4- Good- Abduction 4+ Good+ Knee Strength Knee Manual Muscle Testing Right Flexion (S2) 5 Normal Extension (L3) 5 Normal Left Flexion (S2) 5 Normal Extension (L3) 5 Normal PT-OP-Q Treatments Start: 09/26/18 13:01 Freq: Status: Active Protocol: Document 10/02/18 07:30 AMB (Rec: 10/02/18 08:38 AMB [email or web address]) Therapeutic Exercises Supine Exercises 6 Supine Exercise Name 90-90 hip flex isometric Reps/Minutes 5x5 4 Supine Exercise Name bridges Reps/Minutes 2x10 5 Supine Exercise Name piriformis stretch Reps/Minutes 30x2 3 Supine Exercise Name lower trunk rotation Reps/Minutes 10 2 Supine Exercise Name TrA march Reps/Minutes 30x2 1 Supine Exercise Name IT band stretch Comments with band Manual Therapy Treatment Soft Tissue Mobilization 1 Body Location L hip Mobilization Type Myofascial Release Sustained Pressure Intensity/Depth Moderate Body Position Sidelying PT-OP-T Assessment and Plan Start: 09/26/18 13:01 Freq: Status: Active Protocol: Document 10/02/18 07:30 AMB (Rec: 10/02/18 08:14 AMB [email or web address]) Physical Therapy Assessment Assessment Summary Assessment L leg was long today. Recheck next visit. Continues to need to concentrate on coordination TrA control with breath. Physical Therapy Plan Next Visit Focus/Plan Next Note Type Treatment Note Next Visit Plan Progress core stabilization, piriformis stretch, manual therapy as needed for hip/low back tightness.
--- NOTE | 2018-10-05 09:03 | PT.OTN ---
Current Diagnoses Radiculopathy, lumbar region (10/05/18) Physical Therapy Treatment Note PT-OP-A Visit Information Start: 09/26/18 13:01 Freq: Status: Active Protocol: Document 10/05/18 08:56 SA (Rec: 10/05/18 09:02 SA [email or web address]) Out-Patient Physical Therapy Visit Information Visit Information Visit Type Treatment Note Visit Start Time 08:15 Visit Stop Time 08:56 Total Visit Minutes 41 Visit Number 4 PT-OP-B Current Condition Start: 09/26/18 13:01 Freq: Status: Active Protocol: Document 09/26/18 14:30 AMB (Rec: 09/26/18 16:16 AMB [email or web address]) Current Condition History of Current Condition Onset Date 1 month ago Current Complaints L knee pain that radiates into hip and numbness into lower leg History of Current Condition Burning and sparking pain in lateral thigh and posterior hip that can go into anterior leg but not into foot has been present for one month. Started in the evening after working out (treadmill, weights, supine ball exercise) but exercise felt good while she was doing it but pain started that evening. Wakes up at night due to the pain. Hurts the most in the medial knee. Knee can feel swollen. Prior Treatments and Tests Saw knee doctor in [place] who says her X-ray is fine and thinks it is coming from her back. Treatment Goals Patient/Caregiver Goals Return to walking Prior Functional Status Baseline Function- Recreation/Hobbies Walking 3-4 miles 4x/week Current Functional Impairments (Reported) Functional Limitations- ADL's Difficulty sleeping, sitting, walking due to pain in knee. Personal Factors Other Personal Factors That May Effect Pt's is undergoing Therapy/Recovery back surgery in 12 days. History of TKA with revision on the left 5 years ago. PT-OP-C Subjective Start: 09/26/18 13:01 Freq: Status: Active Protocol: Document 10/05/18 08:56 SA (Rec: 10/05/18 09:02 SA [email or web address]) OP-PT Subjective Patient Comments Patient Comments Pt reports feeling a little better today, has been doing HEP daily and feels it is helping. PT-OP-G Mobility & Gait Start: 09/26/18 13:01 Freq: Status: Active Protocol: Document 09/26/18 14:30 AMB (Rec: 09/26/18 16:31 AMB [email or web address]) OP Gait Assessment Comments Gait Comments Pt ambulating well when not painful, slight restriction in trunk rotation. PT-OP-J Posture/Palpation/Skin Start: 09/26/18 13:01 Freq: Status: Active Protocol: Document 09/26/18 14:30 AMB (Rec: 09/26/18 16:31 AMB [email or web address]) Posture Evaluation Comments Posture Comments Stands with right shoulder high. Mild increased thoracic kyphosis and lumbar lordosis. Palpation Assessment Location One Palpation Location Left leg Palpation Findings Soft Tissue Tightness Muscle Guarding Tenderness Palpation Details Tenderness and tightness L>R at piriformis and IT band. No pain with fibular mobilization. Tightness into knee flexion but this is baseline for the patient s/p TKA. Mildly tender with PAs through lumbar and sacrum, does not radiate. PT-OP-K Range of Motion Start: 09/26/18 13:01 Freq: Status: Active Protocol: Document 09/26/18 14:30 AMB (Rec: 09/26/18 16:31 AMB [email or web address]) Lumbar Spine Range of Motion Lumbar Spine Active Percentage Testing Position Standing Flexion 100 Extension 25 Lateral Flexion Left 50 Lateral Flexion Right 75 Comments pain with extension, stiffness with sidebending bilaterally Hip Goniometric Range of Motion Hip ROM Limitations Comments AROM WNL bilat Knee Goniometric Range of Motion Knee ROM Limitations Comments Extension WNL, flexion limited by TKA to approx 110. PT-OP-L Special Tests Start: 09/26/18 13:01 Freq: Status: Active Protocol: Document 09/26/18 14:30 AMB (Rec: 09/26/18 16:31 AMB [email or web address]) Special Tests Lumbar Spine Special Tests Manual Traction Test Results positive for reduction in pain Straight Leg Raise Test Results negative for increase in pain PT-OP-M Strength Start: 09/26/18 13:01 Freq: Status: Active Protocol: Document 09/26/18 14:30 AMB (Rec: 09/26/18 16:31 AMB [email or web address]) Hip Strength Hip Manual Muscle Testing Right Flexion (L2) 5 Normal Extension (S1) 4 Good Abduction 4+ Good+ Left Flexion (L2) 4+ Good+ Extension (S1) 4- Good- Abduction 4+ Good+ Knee Strength Knee Manual Muscle Testing Right Flexion (S2) 5 Normal Extension (L3) 5 Normal Left Flexion (S2) 5 Normal Extension (L3) 5 Normal PT-OP-Q Treatments Start: 09/26/18 13:01 Freq: Status: Active Protocol: Document 10/05/18 08:56 SA (Rec: 10/05/18 09:02 [email or web address]) Cardio Equipment Recumbent Bicycle Duration (Minutes) 8 Resistance 3 Therapeutic Exercises Supine Exercises 6 Supine Exercise Name 90-90 hip flex isometric Reps/Minutes 5 x 8 4 Supine Exercise Name bridges Equipment Used Red PT ball Reps/Minutes 2x10 5 Supine Exercise Name piriformis stretch Reps/Minutes 30x2 3 Supine Exercise Name lower trunk rotation Equipment Used Red PT ball Reps/Minutes 12 2 Supine Exercise Name TrA march Reps/Minutes 30x2 1 Supine Exercise Name IT band stretch Side bilateral Reps/Minutes 15 x 5 Comments with band Manual Therapy Treatment Soft Tissue Mobilization 1 Body Location L hip Mobilization Type Myofascial Release Sustained Pressure Intensity/Depth Moderate Body Position Sidelying Comments Trial of ITB rolling with roller, pt to assess her tolerance and report back next visit. PT-OP-T Assessment and Plan Start: 09/26/18 13:01 Freq: Status: Active Protocol: Document 10/05/18 08:56 (Rec: 10/05/18 09:02 [email or web address]) Physical Therapy Assessment Assessment Summary Assessment PT progressing with with stretching and core stability program, demonstrates good awareness of body. Physical Therapy Plan Next Visit Focus/Plan Next Note Type Treatment Note Next Visit Plan Progress core stability program and re visit body mechanics with patient's having spinal surgery and returning home next week.
--- NOTE | 2018-10-08 08:44 | PT.OTN ---
Current Diagnoses Radiculopathy, lumbar region (10/08/18) Physical Therapy Treatment Note PT-OP-A Visit Information Start: 09/26/18 13:01 Freq: Status: Active Protocol: Document 10/08/18 07:38 [facility] (Rec: 10/08/18 08:44 [facility] [id number]) Out-Patient Physical Therapy Visit Information Visit Information Visit Type Treatment Note Visit Start Time 07:30 Visit Stop Time 08:15 Total Visit Minutes 45 Visit Number 5 PT-OP-B Current Condition Start: 09/26/18 13:01 Freq: Status: Active Protocol: Document 09/26/18 14:30 AMB (Rec: 09/26/18 16:16 AMB [email or web address]) Current Condition History of Current Condition Onset Date 1 month ago Current Complaints L knee pain that radiates into hip and numbness into lower leg History of Current Condition Burning and sparking pain in lateral thigh and posterior hip that can go into anterior leg but not into foot has been present for one month. Started in the evening after working out (treadmill, weights, supine ball exercise) but exercise felt good while she was doing it but pain started that evening. Wakes up at night due to the pain. Hurts the most in the medial knee. Knee can feel swollen. Prior Treatments and Tests Saw knee doctor in [place] who says her X-ray is fine and thinks it is coming from her back. Treatment Goals Patient/Caregiver Goals Return to walking Prior Functional Status Baseline Function- Recreation/Hobbies Walking 3-4 miles 4x/week Current Functional Impairments (Reported) Functional Limitations- ADL's Difficulty sleeping, sitting, walking due to pain in knee. Personal Factors Other Personal Factors That May Effect Pt's is undergoing Therapy/Recovery back surgery in 12 days. History of TKA with revision on the left 5 years ago. PT-OP-C Subjective Start: 09/26/18 13:01 Freq: Status: Active Protocol: Document 10/08/18 07:38 [facility] (Rec: 10/08/18 08:44 [facility] [id number]) OP-PT Subjective Patient Comments Patient Comments Pt reports groin aggevation which she thinks was from sitting at her computer chair. REports she had trouble sleeping the past couple nights. PT-OP-G Mobility & Gait Start: 09/26/18 13:01 Freq: Status: Active Protocol: Document 09/26/18 14:30 AMB (Rec: 09/26/18 16:31 AMB [email or web address]) OP Gait Assessment Comments Gait Comments Pt ambulating well when not painful, slight restriction in trunk rotation. PT-OP-J Posture/Palpation/Skin Start: 09/26/18 13:01 Freq: Status: Active Protocol: Document 09/26/18 14:30 AMB (Rec: 09/26/18 16:31 AMB [email or web address]) Posture Evaluation Comments Posture Comments Stands with right shoulder high. Mild increased thoracic kyphosis and lumbar lordosis. Palpation Assessment Location One Palpation Location Left leg Palpation Findings Soft Tissue Tightness Muscle Guarding Tenderness Palpation Details Tenderness and tightness L>R at piriformis and IT band. No pain with fibular mobilization. Tightness into knee flexion but this is baseline for the patient s/p TKA. Mildly tender with PAs through lumbar and sacrum, does not radiate. PT-OP-K Range of Motion Start: 09/26/18 13:01 Freq: Status: Active Protocol: Document 09/26/18 14:30 AMB (Rec: 09/26/18 16:31 AMB [email or web address]) Lumbar Spine Range of Motion Lumbar Spine Active Percentage Testing Position Standing Flexion 100 Extension 25 Lateral Flexion Left 50 Lateral Flexion Right 75 Comments pain with extension, stiffness with sidebending bilaterally Hip Goniometric Range of Motion Hip ROM Limitations Comments AROM WNL bilat Knee Goniometric Range of Motion Knee ROM Limitations Comments Extension WNL, flexion limited by TKA to approx 110. PT-OP-L Special Tests Start: 09/26/18 13:01 Freq: Status: Active Protocol: Document 09/26/18 14:30 AMB (Rec: 09/26/18 16:31 AMB [email or web address]) Special Tests Lumbar Spine Special Tests Manual Traction Test Results positive for reduction in pain Straight Leg Raise Test Results negative for increase in pain PT-OP-M Strength Start: 09/26/18 13:01 Freq: Status: Active Protocol: Document 09/26/18 14:30 AMB (Rec: 09/26/18 16:31 AMB [email or web address]) Hip Strength Hip Manual Muscle Testing Right Flexion (L2) 5 Normal Extension (S1) 4 Good Abduction 4+ Good+ Left Flexion (L2) 4+ Good+ Extension (S1) 4- Good- Abduction 4+ Good+ Knee Strength Knee Manual Muscle Testing Right Flexion (S2) 5 Normal Extension (L3) 5 Normal Left Flexion (S2) 5 Normal Extension (L3) 5 Normal PT-OP-Q Treatments Start: 09/26/18 13:01 Freq: Status: Active Protocol: Document 10/08/18 07:38 [facility] (Rec: 10/08/18 08:44 [facility] [id number]) Cardio Equipment Bicycle (Upright) Duration (Minutes) 6 Resistance 3 Seat Position 5 Other focus on posture Therapeutic Exercises Supine Exercises 5 Supine Exercise Name piriformis stretch Reps/Minutes 30x2 1 Supine Exercise Name IT band stretch Side bilateral Reps/Minutes 15 x 5 Comments with band Therapeutic Activity Therapeutic Activity desk position Name edu on desk set up Comments hand out given, edu how to use towel for support sleeping position Name s/l and supine positioning Comments MARTIN and edu on positioning with handouts. 1 Name body mechanics Comments lunging down and hip hinge to help put on socks Manual Therapy Treatment Soft Tissue Mobilization 1 Body Location L hip Mobilization Type Myofascial Release Sustained Pressure Intensity/Depth Moderate Body Position Sidelying PT-OP-T Assessment and Plan Start: 09/26/18 13:01 Freq: Status: Active Protocol: Document 10/08/18 07:38 [facility] (Rec: 10/08/18 08:44 [facility] [id number]) Physical Therapy Assessment Goals Four Impairment positional tolerance Short Term Goal (STG) The patient will sit for 1 hour with leg pain of 4/10 or less. STG Duration 4 weeks Correction Goal (LTG) The patient will sleep for 6 hours without waking due to pain. LTG Duration 8 weeks Three Impairment body mechanics Short Term Goal (STG) The patient will assist her with bed mobility s/p his lumbar surgery with good body mechanics without an increase in pain. STG Duration 4 weeks Correction Goal (LTG) The patient will perform a squat with good body mechanics to lift 10 pounds without an increase in pain. LTG Duration 8 weeks Two Impairment gait Short Term Goal (STG) The patient will ambulate for 15 minutes with pain of 4/10 or less. STG Duration 4 weeks Correction Goal (LTG) The patient will ambulate for 2 miles with pain of 4/10 or less. LTG Duration 8 weeks One Impairment ROM Assessment Summary Assessment Pt noted relief with positioning with sleeping set up and had relief with desk set up and using towel for back support. Physical Therapy Plan Frequency and Duration Frequency of Treatment 2x/Week Duration of Treatment 8 weeks Plan of Care Start Date 09/26/18 Plan of Care End Date 11/21/18 Next Visit Focus/Plan Next Note Type Treatment Note Next Visit Plan Progress core stability program and re visit body mechanics with pateint's
--- NOTE | 2018-10-16 09:03 | PT.OTN ---
Current Diagnoses Radiculopathy, lumbar region (10/16/18) Physical Therapy Treatment Note PT-OP-A Visit Information Start: 09/26/18 13:01 Freq: Status: Active Protocol: Document 10/16/18 08:53 SA (Rec: 10/16/18 09:03 SA [email or web address]) Out-Patient Physical Therapy Visit Information Visit Information Visit Type Treatment Note Visit Start Time 08:15 Visit Stop Time 09:00 Total Visit Minutes 45 Visit Number 6 PT-OP-B Current Condition Start: 09/26/18 13:01 Freq: Status: Active Protocol: Document 09/26/18 14:30 AMB (Rec: 09/26/18 16:16 AMB [email or web address]) Current Condition History of Current Condition Onset Date 1 month ago Current Complaints L knee pain that radiates into hip and numbness into lower leg History of Current Condition Burning and sparking pain in lateral thigh and posterior hip that can go into anterior leg but not into foot has been present for one month. Started in the evening after working out (treadmill, weights, supine ball exercise) but exercise felt good while she was doing it but pain started that evening. Wakes up at night due to the pain. Hurts the most in the medial knee. Knee can feel swollen. Prior Treatments and Tests Saw knee doctor in [place] who says her X-ray is fine and thinks it is coming from her back. Treatment Goals Patient/Caregiver Goals Return to walking Prior Functional Status Baseline Function- Recreation/Hobbies Walking 3-4 miles 4x/week Current Functional Impairments (Reported) Functional Limitations- ADL's Difficulty sleeping, sitting, walking due to pain in knee. Personal Factors Other Personal Factors That May Effect Pt's is undergoing Therapy/Recovery back surgery in 12 days. History of TKA with revision on the left 5 years ago. PT-OP-C Subjective Start: 09/26/18 13:01 Freq: Status: Active Protocol: Document 10/16/18 08:53 SA (Rec: 10/16/18 09:03 SA [email or web address]) OP-PT Subjective Patient Comments Patient Comments Pt reports a recent flare up in scaiatic pain that comes and goes and notes and increase in forward bending and low back movements in caring for her post-op . Denies groin pain. PT-OP-G Mobility & Gait Start: 09/26/18 13:01 Freq: Status: Active Protocol: Document 09/26/18 14:30 AMB (Rec: 09/26/18 16:31 AMB [email or web address]) OP Gait Assessment Comments Gait Comments Pt ambulating well when not painful, slight restriction in trunk rotation. PT-OP-J Posture/Palpation/Skin Start: 09/26/18 13:01 Freq: Status: Active Protocol: Document 09/26/18 14:30 AMB (Rec: 09/26/18 16:31 AMB [email or web address]) Posture Evaluation Comments Posture Comments Stands with right shoulder high. Mild increased thoracic kyphosis and lumbar lordosis. Palpation Assessment Location One Palpation Location Left leg Palpation Findings Soft Tissue Tightness Muscle Guarding Tenderness Palpation Details Tenderness and tightness L>R at piriformis and IT band. No pain with fibular mobilization. Tightness into knee flexion but this is baseline for the patient s/p TKA. Mildly tender with PAs through lumbar and sacrum, does not radiate. PT-OP-K Range of Motion Start: 09/26/18 13:01 Freq: Status: Active Protocol: Document 09/26/18 14:30 AMB (Rec: 09/26/18 16:31 AMB [email or web address]) Lumbar Spine Range of Motion Lumbar Spine Active Percentage Testing Position Standing Flexion 100 Extension 25 Lateral Flexion Left 50 Lateral Flexion Right 75 Comments pain with extension, stiffness with sidebending bilaterally Hip Goniometric Range of Motion Hip ROM Limitations Comments AROM WNL bilat Knee Goniometric Range of Motion Knee ROM Limitations Comments Extension WNL, flexion limited by TKA to approx 110. PT-OP-L Special Tests Start: 09/26/18 13:01 Freq: Status: Active Protocol: Document 09/26/18 14:30 AMB (Rec: 09/26/18 16:31 AMB [email or web address]) Special Tests Lumbar Spine Special Tests Manual Traction Test Results positive for reduction in pain Straight Leg Raise Test Results negative for increase in pain PT-OP-M Strength Start: 09/26/18 13:01 Freq: Status: Active Protocol: Document 09/26/18 14:30 AMB (Rec: 09/26/18 16:31 AMB [email or web address]) Hip Strength Hip Manual Muscle Testing Right Flexion (L2) 5 Normal Extension (S1) 4 Good Abduction 4+ Good+ Left Flexion (L2) 4+ Good+ Extension (S1) 4- Good- Abduction 4+ Good+ Knee Strength Knee Manual Muscle Testing Right Flexion (S2) 5 Normal Extension (L3) 5 Normal Left Flexion (S2) 5 Normal Extension (L3) 5 Normal PT-OP-Q Treatments Start: 09/26/18 13:01 Freq: Status: Active Protocol: Document 10/16/18 08:53 SA (Rec: 10/16/18 09:03 [email or web address]) Cardio Equipment Recumbent Bicycle Duration (Minutes) 7 Resistance 4 Therapeutic Exercises Supine Exercises 6 Supine Exercise Name 90-90 hip flex isometric Reps/Minutes 5 x 8 4 Supine Exercise Name bridges Equipment Used Red PT ball Reps/Minutes 2x10 5 Supine Exercise Name piriformis stretch Reps/Minutes 30x2 3 Supine Exercise Name lower trunk rotation Equipment Used Red PT ball Reps/Minutes 15 2 Supine Exercise Name TrA march Reps/Minutes 30x2 1 Supine Exercise Name IT band stretch Side bilateral Reps/Minutes 15 x 5 Comments with band Manual Therapy Treatment Soft Tissue Mobilization 1 Body Location L hip Mobilization Type Myofascial Release Sustained Pressure Intensity/Depth Moderate Body Position Sidelying PT-OP-R Modalities Start: 09/26/18 13:01 Freq: Status: Active Protocol: Document 10/16/18 08:53 SA (Rec: 10/16/18 09:03 [email or web address]) Hot Pack/Cold Pack Treatment Cold Pack Location L hip/ITB Patient Position Sidelying Treatment Duration (minutes) 10 PT-OP-T Assessment and Plan Start: 09/26/18 13:01 Freq: Status: Active Protocol: Document 10/16/18 08:53 (Rec: 10/16/18 09:03 [email or web address]) Physical Therapy Assessment Assessment Summary Assessment Review of body mechanics with care of . Pt to try half-kneel rather than lumbar flexion when donning/doffing belt, shoes and socks. Trial with CP to see if she gets relief after exercise/ stretches. Pt tolerated exercise well. Physical Therapy Plan Frequency and Duration Frequency of Treatment 2x/Week Duration of Treatment 8 weeks Plan of Care Start Date 09/26/18 Plan of Care End Date 11/21/18 Next Visit Focus/Plan Next Note Type Treatment Note Next Visit Plan Continue with stretching and core stability work. Pt notes use of tennis ball on L ITB/ buttock has been helpful and plans to continue with that.
--- NOTE | 2018-10-19 14:11 | PT.OTN ---
Current Diagnoses Radiculopathy, lumbar region (10/19/18) Physical Therapy Treatment Note PT-OP-A Visit Information Start: 09/26/18 13:01 Freq: Status: Active Protocol: Document 10/19/18 13:00 AMB (Rec: 10/19/18 14:09 AMB [email or web address]) Out-Patient Physical Therapy Visit Information Visit Information Visit Type Treatment Note Visit Start Time 13:00 Visit Stop Time 13:45 Total Visit Minutes 45 Visit Number 7 PT-OP-B Current Condition Start: 09/26/18 13:01 Freq: Status: Active Protocol: Document 09/26/18 14:30 AMB (Rec: 09/26/18 16:16 AMB [email or web address]) Current Condition History of Current Condition Onset Date 1 month ago Current Complaints L knee pain that radiates into hip and numbness into lower leg History of Current Condition Burning and sparking pain in lateral thigh and posterior hip that can go into anterior leg but not into foot has been present for one month. Started in the evening after working out (treadmill, weights, supine ball exercise) but exercise felt good while she was doing it but pain started that evening. Wakes up at night due to the pain. Hurts the most in the medial knee. Knee can feel swollen. Prior Treatments and Tests Saw knee doctor in [place] who says her X-ray is fine and thinks it is coming from her back. Treatment Goals Patient/Caregiver Goals Return to walking Prior Functional Status Baseline Function- Recreation/Hobbies Walking 3-4 miles 4x/week Current Functional Impairments (Reported) Functional Limitations- ADL's Difficulty sleeping, sitting, walking due to pain in knee. Personal Factors Other Personal Factors That May Effect Pt's is undergoing Therapy/Recovery back surgery in 12 days. History of TKA with revision on the left 5 years ago. PT-OP-C Subjective Start: 09/26/18 13:01 Freq: Status: Active Protocol: Document 10/19/18 13:00 AMB (Rec: 10/19/18 14:09 AMB [email or web address]) OP-PT Subjective Patient Comments Patient Comments Pt reports pain with sitting, both in her office chair and the car. Notes difficulty with donning/doffing 's socks continues. PT-OP-G Mobility & Gait Start: 09/26/18 13:01 Freq: Status: Active Protocol: Document 09/26/18 14:30 AMB (Rec: 09/26/18 16:31 AMB [email or web address]) OP Gait Assessment Comments Gait Comments Pt ambulating well when not painful, slight restriction in trunk rotation. PT-OP-J Posture/Palpation/Skin Start: 09/26/18 13:01 Freq: Status: Active Protocol: Document 09/26/18 14:30 AMB (Rec: 09/26/18 16:31 AMB [email or web address]) Posture Evaluation Comments Posture Comments Stands with right shoulder high. Mild increased thoracic kyphosis and lumbar lordosis. Palpation Assessment Location One Palpation Location Left leg Palpation Findings Soft Tissue Tightness Muscle Guarding Tenderness Palpation Details Tenderness and tightness L>R at piriformis and IT band. No pain with fibular mobilization. Tightness into knee flexion but this is baseline for the patient s/p TKA. Mildly tender with PAs through lumbar and sacrum, does not radiate. PT-OP-K Range of Motion Start: 09/26/18 13:01 Freq: Status: Active Protocol: Document 09/26/18 14:30 AMB (Rec: 09/26/18 16:31 AMB [email or web address]) Lumbar Spine Range of Motion Lumbar Spine Active Percentage Testing Position Standing Flexion 100 Extension 25 Lateral Flexion Left 50 Lateral Flexion Right 75 Comments pain with extension, stiffness with sidebending bilaterally Hip Goniometric Range of Motion Hip ROM Limitations Comments AROM WNL bilat Knee Goniometric Range of Motion Knee ROM Limitations Comments Extension WNL, flexion limited by TKA to approx 110. PT-OP-L Special Tests Start: 09/26/18 13:01 Freq: Status: Active Protocol: Document 09/26/18 14:30 AMB (Rec: 09/26/18 16:31 AMB [email or web address]) Special Tests Lumbar Spine Special Tests Manual Traction Test Results positive for reduction in pain Straight Leg Raise Test Results negative for increase in pain PT-OP-M Strength Start: 09/26/18 13:01 Freq: Status: Active Protocol: Document 09/26/18 14:30 AMB (Rec: 09/26/18 16:31 AMB [email or web address]) Hip Strength Hip Manual Muscle Testing Right Flexion (L2) 5 Normal Extension (S1) 4 Good Abduction 4+ Good+ Left Flexion (L2) 4+ Good+ Extension (S1) 4- Good- Abduction 4+ Good+ Knee Strength Knee Manual Muscle Testing Right Flexion (S2) 5 Normal Extension (L3) 5 Normal Left Flexion (S2) 5 Normal Extension (L3) 5 Normal PT-OP-Q Treatments Start: 09/26/18 13:01 Freq: Status: Active Protocol: Document 10/19/18 13:00 AMB (Rec: 10/19/18 14:09 AMB [email or web address]) Cardio Equipment Bicycle (Upright) Duration (Minutes) 6 Resistance 3 Seat Position 5 Other focus on posture Therapeutic Exercises Supine Exercises 6 Supine Exercise Name 90-90 hip flex isometric Reps/Minutes 5 x 8 4 Supine Exercise Name bridges Equipment Used Red PT ball Reps/Minutes 2x10 5 Supine Exercise Name piriformis stretch Reps/Minutes 30x2 3 Supine Exercise Name lower trunk rotation Equipment Used Red PT ball Reps/Minutes 15 2 Supine Exercise Name TrA march Reps/Minutes 30x2 1 Supine Exercise Name IT band stretch Side bilateral Reps/Minutes 15 x 5 Comments with band Sidelying Exercises 2 Sidelying Exercise Name clamshell Reps/Minutes 2x10 1 Sidelying Exercise Name hip abd Reps/Minutes 2x10 Therapeutic Activity Therapeutic Activity 1 Name body mechanics Comments lunging down and hip hinge to help put on socks. Full kneel to get down lower. Manual Therapy Treatment Soft Tissue Mobilization 1 Body Location L hip Mobilization Type Myofascial Release Sustained Pressure Intensity/Depth Moderate Body Position Sidelying PT-OP-R Modalities Start: 09/26/18 13:01 Freq: Status: Active Protocol: Document 10/16/18 08:53 SA (Rec: 10/16/18 09:03 SA [email or web address]) Hot Pack/Cold Pack Treatment Cold Pack Location L hip/ITB Patient Position Sidelying Treatment Duration (minutes) 10 PT-OP-T Assessment and Plan Start: 09/26/18 13:01 Freq: Status: Active Protocol: Document 10/19/18 13:00 AMB (Rec: 10/19/18 14:09 AMB [email or web address]) Physical Therapy Assessment Assessment Summary Assessment Pt overall improving, but will need continued instruction in body mechanics, safe return to exercise. Physical Therapy Plan Next Visit Focus/Plan Next Note Type Treatment Note Next Visit Plan Continue with stretching and core stability work. Pt notes use of tennis ball on L ITB/ buttock has been helpful and plans to continue with that.
--- NOTE | 2018-10-23 11:05 | PT.OTN ---
Current Diagnoses Radiculopathy, lumbar region (10/23/18) Physical Therapy Treatment Note PT-OP-A Visit Information Start: 09/26/18 13:01 Freq: Status: Active Protocol: Document 10/23/18 10:59 SA (Rec: 10/23/18 11:05 SA [email or web address]) Out-Patient Physical Therapy Visit Information Visit Information Visit Type Treatment Note Visit Start Time 09:00 Visit Stop Time 09:45 Total Visit Minutes 45 Visit Number 8 PT-OP-B Current Condition Start: 09/26/18 13:01 Freq: Status: Active Protocol: Document 09/26/18 14:30 AMB (Rec: 09/26/18 16:16 AMB [email or web address]) Current Condition History of Current Condition Onset Date 1 month ago Current Complaints L knee pain that radiates into hip and numbness into lower leg History of Current Condition Burning and sparking pain in lateral thigh and posterior hip that can go into anterior leg but not into foot has been present for one month. Started in the evening after working out (treadmill, weights, supine ball exercise) but exercise felt good while she was doing it but pain started that evening. Wakes up at night due to the pain. Hurts the most in the medial knee. Knee can feel swollen. Prior Treatments and Tests Saw knee doctor in [place] who says her X-ray is fine and thinks it is coming from her back. Treatment Goals Patient/Caregiver Goals Return to walking Prior Functional Status Baseline Function- Recreation/Hobbies Walking 3-4 miles 4x/week Current Functional Impairments (Reported) Functional Limitations- ADL's Difficulty sleeping, sitting, walking due to pain in knee. Personal Factors Other Personal Factors That May Effect Pt's is undergoing Therapy/Recovery back surgery in 12 days. History of TKA with revision on the left 5 years ago. PT-OP-C Subjective Start: 09/26/18 13:01 Freq: Status: Active Protocol: Document 10/23/18 10:59 SA (Rec: 10/23/18 11:05 SA [email or web address]) OP-PT Subjective Patient Comments Patient Comments Pt has stopped donning/doffing husbands socks. Noted occasional sciatic pain, has not spent much time in office chair. PT-OP-G Mobility & Gait Start: 09/26/18 13:01 Freq: Status: Active Protocol: Document 09/26/18 14:30 AMB (Rec: 09/26/18 16:31 AMB [email or web address]) OP Gait Assessment Comments Gait Comments Pt ambulating well when not painful, slight restriction in trunk rotation. PT-OP-J Posture/Palpation/Skin Start: 09/26/18 13:01 Freq: Status: Active Protocol: Document 09/26/18 14:30 AMB (Rec: 09/26/18 16:31 AMB [email or web address]) Posture Evaluation Comments Posture Comments Stands with right shoulder high. Mild increased thoracic kyphosis and lumbar lordosis. Palpation Assessment Location One Palpation Location Left leg Palpation Findings Soft Tissue Tightness Muscle Guarding Tenderness Palpation Details Tenderness and tightness L>R at piriformis and IT band. No pain with fibular mobilization. Tightness into knee flexion but this is baseline for the patient s/p TKA. Mildly tender with PAs through lumbar and sacrum, does not radiate. PT-OP-K Range of Motion Start: 09/26/18 13:01 Freq: Status: Active Protocol: Document 09/26/18 14:30 AMB (Rec: 09/26/18 16:31 AMB [email or web address]) Lumbar Spine Range of Motion Lumbar Spine Active Percentage Testing Position Standing Flexion 100 Extension 25 Lateral Flexion Left 50 Lateral Flexion Right 75 Comments pain with extension, stiffness with sidebending bilaterally Hip Goniometric Range of Motion Hip ROM Limitations Comments AROM WNL bilat Knee Goniometric Range of Motion Knee ROM Limitations Comments Extension WNL, flexion limited by TKA to approx 110. PT-OP-L Special Tests Start: 09/26/18 13:01 Freq: Status: Active Protocol: Document 09/26/18 14:30 AMB (Rec: 09/26/18 16:31 AMB [email or web address]) Special Tests Lumbar Spine Special Tests Manual Traction Test Results positive for reduction in pain Straight Leg Raise Test Results negative for increase in pain PT-OP-M Strength Start: 09/26/18 13:01 Freq: Status: Active Protocol: Document 09/26/18 14:30 AMB (Rec: 09/26/18 16:31 AMB [email or web address]) Hip Strength Hip Manual Muscle Testing Right Flexion (L2) 5 Normal Extension (S1) 4 Good Abduction 4+ Good+ Left Flexion (L2) 4+ Good+ Extension (S1) 4- Good- Abduction 4+ Good+ Knee Strength Knee Manual Muscle Testing Right Flexion (S2) 5 Normal Extension (L3) 5 Normal Left Flexion (S2) 5 Normal Extension (L3) 5 Normal PT-OP-Q Treatments Start: 09/26/18 13:01 Freq: Status: Active Protocol: Document 10/23/18 10:59 SA (Rec: 10/23/18 11:05 [email or web address]) Cardio Equipment Bicycle (Upright) Duration (Minutes) 6 Resistance 3 Seat Position 5 Other focus on posture Therapeutic Exercises Supine Exercises 6 Supine Exercise Name 90-90 hip flex isometric Reps/Minutes 5 x 8 4 Supine Exercise Name bridges Equipment Used Red PT ball Reps/Minutes 2x10 5 Supine Exercise Name piriformis stretch Reps/Minutes 30x2 3 Supine Exercise Name lower trunk rotation Equipment Used Red PT ball Reps/Minutes 15 2 Supine Exercise Name TrA march Reps/Minutes 30x2 1 Supine Exercise Name IT band stretch Side bilateral Reps/Minutes 15 x 5 Comments with band Sidelying Exercises 2 Sidelying Exercise Name clamshell Reps/Minutes 2x10 Comments yellow TB resistance 1 Sidelying Exercise Name hip abd Reps/Minutes 2x10 Manual Therapy Treatment Soft Tissue Mobilization 1 Body Location L hip Mobilization Type Myofascial Release Sustained Pressure Intensity/Depth Moderate Body Position Sidelying Comments L piriformis PT-OP-R Modalities Start: 09/26/18 13:01 Freq: Status: Active Protocol: Document 10/16/18 08:53 SA (Rec: 10/16/18 09:03 [email or web address]) Hot Pack/Cold Pack Treatment Cold Pack Location L hip/ITB Patient Position Sidelying Treatment Duration (minutes) 10 PT-OP-T Assessment and Plan Start: 09/26/18 13:01 Freq: Status: Active Protocol: Document 10/23/18 10:59 SA (Rec: 10/23/18 11:05 [email or web address]) Physical Therapy Assessment Assessment Summary Assessment Pt limiting caregiving activity as she has had recent increase in sx. Continues to be consistent with HEP. Review of exercises today. Physical Therapy Plan Next Visit Focus/Plan Next Note Type Treatment Note Next Visit Plan Continue to progress core stability ther ex and educate for body mechanics and desk ergonomics.
--- NOTE | 2018-10-26 10:56 | PT.OTN ---
Current Diagnoses Radiculopathy, lumbar region (10/26/18) Physical Therapy Treatment Note PT-OP-A Visit Information Start: 09/26/18 13:01 Freq: Status: Active Protocol: Document 10/26/18 08:15 AMB (Rec: 10/26/18 08:55 AMB [email or web address]) Out-Patient Physical Therapy Visit Information Visit Information Visit Type Treatment Note Visit Start Time 08:15 Visit Stop Time 09:00 Total Visit Minutes 45 Visit Number 9 PT-OP-B Current Condition Start: 09/26/18 13:01 Freq: Status: Active Protocol: Document 09/26/18 14:30 AMB (Rec: 09/26/18 16:16 AMB [email or web address]) Current Condition History of Current Condition Onset Date 1 month ago Current Complaints L knee pain that radiates into hip and numbness into lower leg History of Current Condition Burning and sparking pain in lateral thigh and posterior hip that can go into anterior leg but not into foot has been present for one month. Started in the evening after working out (treadmill, weights, supine ball exercise) but exercise felt good while she was doing it but pain started that evening. Wakes up at night due to the pain. Hurts the most in the medial knee. Knee can feel swollen. Prior Treatments and Tests Saw knee doctor in [place] who says her X-ray is fine and thinks it is coming from her back. Treatment Goals Patient/Caregiver Goals Return to walking Prior Functional Status Baseline Function- Recreation/Hobbies Walking 3-4 miles 4x/week Current Functional Impairments (Reported) Functional Limitations- ADL's Difficulty sleeping, sitting, walking due to pain in knee. Personal Factors Other Personal Factors That May Effect Pt's is undergoing Therapy/Recovery back surgery in 12 days. History of TKA with revision on the left 5 years ago. PT-OP-C Subjective Start: 09/26/18 13:01 Freq: Status: Active Protocol: Document 10/26/18 08:15 AMB (Rec: 10/26/18 08:55 AMB [id number]) OP-PT Subjective Patient Comments Patient Comments Pt is doing good this week. PT-OP-G Mobility & Gait Start: 09/26/18 13:01 Freq: Status: Active Protocol: Document 09/26/18 14:30 AMB (Rec: 09/26/18 16:31 AMB [email or web address]) OP Gait Assessment Comments Gait Comments Pt ambulating well when not painful, slight restriction in trunk rotation. PT-OP-J Posture/Palpation/Skin Start: 09/26/18 13:01 Freq: Status: Active Protocol: Document 09/26/18 14:30 AMB (Rec: 09/26/18 16:31 AMB [email or web address]) Posture Evaluation Comments Posture Comments Stands with right shoulder high. Mild increased thoracic kyphosis and lumbar lordosis. Palpation Assessment Location One Palpation Location Left leg Palpation Findings Soft Tissue Tightness Muscle Guarding Tenderness Palpation Details Tenderness and tightness L>R at piriformis and IT band. No pain with fibular mobilization. Tightness into knee flexion but this is baseline for the patient s/p TKA. Mildly tender with PAs through lumbar and sacrum, does not radiate. PT-OP-K Range of Motion Start: 09/26/18 13:01 Freq: Status: Active Protocol: Document 09/26/18 14:30 AMB (Rec: 09/26/18 16:31 AMB [email or web address]) Lumbar Spine Range of Motion Lumbar Spine Active Percentage Testing Position Standing Flexion 100 Extension 25 Lateral Flexion Left 50 Lateral Flexion Right 75 Comments pain with extension, stiffness with sidebending bilaterally Hip Goniometric Range of Motion Hip ROM Limitations Comments AROM WNL bilat Knee Goniometric Range of Motion Knee ROM Limitations Comments Extension WNL, flexion limited by TKA to approx 110. PT-OP-L Special Tests Start: 09/26/18 13:01 Freq: Status: Active Protocol: Document 09/26/18 14:30 AMB (Rec: 09/26/18 16:31 AMB [email or web address]) Special Tests Lumbar Spine Special Tests Manual Traction Test Results positive for reduction in pain Straight Leg Raise Test Results negative for increase in pain PT-OP-M Strength Start: 09/26/18 13:01 Freq: Status: Active Protocol: Document 09/26/18 14:30 AMB (Rec: 09/26/18 16:31 AMB [email or web address]) Hip Strength Hip Manual Muscle Testing Right Flexion (L2) 5 Normal Extension (S1) 4 Good Abduction 4+ Good+ Left Flexion (L2) 4+ Good+ Extension (S1) 4- Good- Abduction 4+ Good+ Knee Strength Knee Manual Muscle Testing Right Flexion (S2) 5 Normal Extension (L3) 5 Normal Left Flexion (S2) 5 Normal Extension (L3) 5 Normal PT-OP-Q Treatments Start: 09/26/18 13:01 Freq: Status: Active Protocol: Document 10/26/18 08:15 AMB (Rec: 10/26/18 10:56 AMB [email or web address]) Gym Equipment Cable Column (Body Solid) Trunk Details rotation Resistance 10 Reps/Time 1x10 Other- 1 Details biceps curls Resistance 15 Reps/Time 2x10 Rows Resistance 15 Reps/Time 2x10 Therapeutic Ball 1 Ball Size/Color 65cm Body Position Sitting Comments march, LAQ, pelvic circles Therapeutic Exercises Supine Exercises 4 Supine Exercise Name bridges Equipment Used Red PT ball Reps/Minutes 2x10 3 Supine Exercise Name lower trunk rotation Equipment Used Red PT ball Reps/Minutes 15 2 Supine Exercise Name TrA march Reps/Minutes 30x2 PT-OP-R Modalities Start: 09/26/18 13:01 Freq: Status: Active Protocol: Document 10/16/18 08:53 SA (Rec: 10/16/18 09:03 SA [email or web address]) Hot Pack/Cold Pack Treatment Cold Pack Location L hip/ITB Patient Position Sidelying Treatment Duration (minutes) 10 PT-OP-T Assessment and Plan Start: 09/26/18 13:01 Freq: Status: Active Protocol: Document 10/26/18 08:15 AMB (Rec: 10/26/18 10:56 AMB [email or web address]) Physical Therapy Assessment Assessment Summary Assessment Pt hoping to progress exercises more, recheck on tolerance to increased resistance exercises with hope that pt will be able to return to her regular exercise program. Physical Therapy Plan Frequency and Duration Frequency of Treatment 2x/Week Duration of Treatment 8 weeks Plan of Care Start Date 09/26/18 Plan of Care End Date 11/21/18 Next Visit Focus/Plan Next Note Type Treatment Note Next Visit Plan Continue to progress core stability ther ex and educate for body mechanics and desk ergonomics.
--- NOTE | 2018-10-29 16:09 | PT.OTN ---
Current Diagnoses Radiculopathy, lumbar region (10/29/18) Physical Therapy Treatment Note PT-OP-A Visit Information Start: 09/26/18 13:01 Freq: Status: Active Protocol: Document 10/29/18 09:45 AMB (Rec: 10/29/18 10:03 AMB [id number]) Out-Patient Physical Therapy Visit Information Visit Information Visit Type Progress Note Visit Start Time 09:45 Visit Stop Time 10:30 Total Visit Minutes 45 Visit Number 10 PT-OP-B Current Condition Start: 09/26/18 13:01 Freq: Status: Active Protocol: Document 09/26/18 14:30 AMB (Rec: 09/26/18 16:16 AMB [email or web address]) Current Condition History of Current Condition Onset Date 1 month ago Current Complaints L knee pain that radiates into hip and numbness into lower leg History of Current Condition Burning and sparking pain in lateral thigh and posterior hip that can go into anterior leg but not into foot has been present for one month. Started in the evening after working out (treadmill, weights, supine ball exercise) but exercise felt good while she was doing it but pain started that evening. Wakes up at night due to the pain. Hurts the most in the medial knee. Knee can feel swollen. Prior Treatments and Tests Saw knee doctor in [place] who says her X-ray is fine and thinks it is coming from her back. Treatment Goals Patient/Caregiver Goals Return to walking Prior Functional Status Baseline Function- Recreation/Hobbies Walking 3-4 miles 4x/week Current Functional Impairments (Reported) Functional Limitations- ADL's Difficulty sleeping, sitting, walking due to pain in knee. Personal Factors Other Personal Factors That May Effect Pt's is undergoing Therapy/Recovery back surgery in 12 days. History of TKA with revision on the left 5 years ago. PT-OP-C Subjective Start: 09/26/18 13:01 Freq: Status: Active Protocol: Document 10/29/18 09:45 AMB (Rec: 10/29/18 10:03 AMB [id number]) OP-PT Subjective Patient Comments Patient Comments Pt has noticed increased pain after doing lat pull down at home (she was in extension). PT-OP-G Mobility & Gait Start: 09/26/18 13:01 Freq: Status: Active Protocol: Document 09/26/18 14:30 AMB (Rec: 09/26/18 16:31 AMB [email or web address]) OP Gait Assessment Comments Gait Comments Pt ambulating well when not painful, slight restriction in trunk rotation. PT-OP-J Posture/Palpation/Skin Start: 09/26/18 13:01 Freq: Status: Active Protocol: Document 09/26/18 14:30 AMB (Rec: 09/26/18 16:31 AMB [email or web address]) Posture Evaluation Comments Posture Comments Stands with right shoulder high. Mild increased thoracic kyphosis and lumbar lordosis. Palpation Assessment Location One Palpation Location Left leg Palpation Findings Soft Tissue Tightness Muscle Guarding Tenderness Palpation Details Tenderness and tightness L>R at piriformis and IT band. No pain with fibular mobilization. Tightness into knee flexion but this is baseline for the patient s/p TKA. Mildly tender with PAs through lumbar and sacrum, does not radiate. PT-OP-K Range of Motion Start: 09/26/18 13:01 Freq: Status: Active Protocol: Document 09/26/18 14:30 AMB (Rec: 09/26/18 16:31 AMB [email or web address]) Lumbar Spine Range of Motion Lumbar Spine Active Percentage Testing Position Standing Flexion 100 Extension 25 Lateral Flexion Left 50 Lateral Flexion Right 75 Comments pain with extension, stiffness with sidebending bilaterally Hip Goniometric Range of Motion Hip ROM Limitations Comments AROM WNL bilat Knee Goniometric Range of Motion Knee ROM Limitations Comments Extension WNL, flexion limited by TKA to approx 110. PT-OP-L Special Tests Start: 09/26/18 13:01 Freq: Status: Active Protocol: Document 09/26/18 14:30 AMB (Rec: 09/26/18 16:31 AMB [email or web address]) Special Tests Lumbar Spine Special Tests Manual Traction Test Results positive for reduction in pain Straight Leg Raise Test Results negative for increase in pain PT-OP-M Strength Start: 09/26/18 13:01 Freq: Status: Active Protocol: Document 09/26/18 14:30 AMB (Rec: 09/26/18 16:31 AMB [email or web address]) Hip Strength Hip Manual Muscle Testing Right Flexion (L2) 5 Normal Extension (S1) 4 Good Abduction 4+ Good+ Left Flexion (L2) 4+ Good+ Extension (S1) 4- Good- Abduction 4+ Good+ Knee Strength Knee Manual Muscle Testing Right Flexion (S2) 5 Normal Extension (L3) 5 Normal Left Flexion (S2) 5 Normal Extension (L3) 5 Normal PT-OP-Q Treatments Start: 09/26/18 13:01 Freq: Status: Active Protocol: Document 10/29/18 09:45 AMB (Rec: 10/29/18 16:09 AMB [email or web address]) Therapeutic Exercises Supine Exercises 7 Supine Exercise Name TrA SLR Reps/Minutes 2x10 4 Supine Exercise Name bridges Equipment Used Red PT ball Reps/Minutes 2x10 3 Supine Exercise Name lower trunk rotation Equipment Used Red PT ball Reps/Minutes 15 2 Supine Exercise Name TrA march Reps/Minutes 30x2 Sidelying Exercises 2 Sidelying Exercise Name clamshell Reps/Minutes 2x10 Comments yellow TB resistance 1 Sidelying Exercise Name hip abd Reps/Minutes 2x10 Manual Therapy Treatment Soft Tissue Mobilization 1 Body Location L hip Mobilization Type Myofascial Release Sustained Pressure Intensity/Depth Moderate Body Position Sidelying Comments L piriformis PT-OP-R Modalities Start: 09/26/18 13:01 Freq: Status: Active Protocol: Document 10/16/18 08:53 SA (Rec: 10/16/18 09:03 SA [email or web address]) Hot Pack/Cold Pack Treatment Cold Pack Location L hip/ITB Patient Position Sidelying Treatment Duration (minutes) 10 PT-OP-T Assessment and Plan Start: 09/26/18 13:01 Freq: Status: Active Protocol: Document 10/29/18 09:45 AMB (Rec: 10/29/18 16:09 AMB [email or web address]) Physical Therapy Assessment Goals Four Impairment positional tolerance Short Term Goal (STG) The patient will sit for 1 hour with leg pain of 4/10 or less. STG Duration MET [place] Goal (LTG) The patient will sleep for 6 hours without waking due to pain. 10/29/18: Partially met- intermittent LTG Duration 8 weeks Three Impairment body mechanics Short Term Goal (STG) The patient will assist her with bed mobility s/p his lumbar surgery with good body mechanics without an increase in pain. STG Duration MET [place] Goal (LTG) The patient will perform a squat with good body mechanics to lift 10 pounds without an increase in pain. LTG Duration 8 weeks Two Impairment gait Short Term Goal (STG) The patient will ambulate for 15 minutes with pain of 4/10 or less. STG Duration MET [place] Goal (LTG) The patient will ambulate for 2 miles with pain of 4/10 or less. LTG Duration 8 weeks Assessment Summary Assessment Shayla is progressing, although she did have a pain flare ( likely with extending her spine with lat pull down). Reviewed form of exercises and encouraged neutral spine for exercises for now. Physical Therapy Plan Next Visit Focus/Plan Next Note Type Treatment Note Next Visit Plan Continue to progress core stability ther ex and educate for body mechanics and desk ergonomics.
--- NOTE | 2018-11-01 15:51 | PT.OTN ---
Current Diagnoses Radiculopathy, lumbar region (11/01/18) Physical Therapy Treatment Note PT-OP-A Visit Information Start: 09/26/18 13:01 Freq: Status: Active Protocol: Document 11/01/18 09:45 AMB (Rec: 11/01/18 10:00 AMB [id number]) Out-Patient Physical Therapy Visit Information Visit Information Visit Type Treatment Note Visit Start Time 09:45 Visit Stop Time 10:30 Total Visit Minutes 45 Visit Number 11 PT-OP-B Current Condition Start: 09/26/18 13:01 Freq: Status: Active Protocol: Document 09/26/18 14:30 AMB (Rec: 09/26/18 16:16 AMB [email or web address]) Current Condition History of Current Condition Onset Date 1 month ago Current Complaints L knee pain that radiates into hip and numbness into lower leg History of Current Condition Burning and sparking pain in lateral thigh and posterior hip that can go into anterior leg but not into foot has been present for one month. Started in the evening after working out (treadmill, weights, supine ball exercise) but exercise felt good while she was doing it but pain started that evening. Wakes up at night due to the pain. Hurts the most in the medial knee. Knee can feel swollen. Prior Treatments and Tests Saw knee doctor in [place] who says her X-ray is fine and thinks it is coming from her back. Treatment Goals Patient/Caregiver Goals Return to walking Prior Functional Status Baseline Function- Recreation/Hobbies Walking 3-4 miles 4x/week Current Functional Impairments (Reported) Functional Limitations- ADL's Difficulty sleeping, sitting, walking due to pain in knee. Personal Factors Other Personal Factors That May Effect Pt's is undergoing Therapy/Recovery back surgery in 12 days. History of TKA with revision on the left 5 years ago. PT-OP-C Subjective Start: 09/26/18 13:01 Freq: Status: Active Protocol: Document 11/01/18 09:45 AMB (Rec: 11/01/18 10:00 AMB [id number]) OP-PT Subjective Patient Comments Patient Comments Pt woke up at 4 am due to the pain PT-OP-G Mobility & Gait Start: 09/26/18 13:01 Freq: Status: Active Protocol: Document 09/26/18 14:30 AMB (Rec: 01/30/19 16:31 AMB [email or web address]) OP Gait Assessment Comments Gait Comments Pt ambulating well when not painful, slight restriction in trunk rotation. PT-OP-J Posture/Palpation/Skin Start: 09/26/18 13:01 Freq: Status: Active Protocol: Document 09/26/18 14:30 AMB (Rec: 09/26/18 16:31 AMB [email or web address]) Posture Evaluation Comments Posture Comments Stands with right shoulder high. Mild increased thoracic kyphosis and lumbar lordosis. Palpation Assessment Location One Palpation Location Left leg Palpation Findings Soft Tissue Tightness Muscle Guarding Tenderness Palpation Details Tenderness and tightness L>R at piriformis and IT band. No pain with fibular mobilization. Tightness into knee flexion but this is baseline for the patient s/p TKA. Mildly tender with PAs through lumbar and sacrum, does not radiate. PT-OP-K Range of Motion Start: 09/26/18 13:01 Freq: Status: Active Protocol: Document 09/26/18 14:30 AMB (Rec: 09/26/18 16:31 AMB [email or web address]) Lumbar Spine Range of Motion Lumbar Spine Active Percentage Testing Position Standing Flexion 100 Extension 25 Lateral Flexion Left 50 Lateral Flexion Right 75 Comments pain with extension, stiffness with sidebending bilaterally Hip Goniometric Range of Motion Hip ROM Limitations Comments AROM WNL bilat Knee Goniometric Range of Motion Knee ROM Limitations Comments Extension WNL, flexion limited by TKA to approx 110. PT-OP-L Special Tests Start: 09/26/18 13:01 Freq: Status: Active Protocol: Document 09/26/18 14:30 AMB (Rec: 09/26/18 16:31 AMB [email or web address]) Special Tests Lumbar Spine Special Tests Manual Traction Test Results positive for reduction in pain Straight Leg Raise Test Results negative for increase in pain PT-OP-M Strength Start: 09/26/18 13:01 Freq: Status: Active Protocol: Document 09/26/18 14:30 AMB (Rec: 09/26/18 16:31 AMB [email or web address]) Hip Strength Hip Manual Muscle Testing Right Flexion (L2) 5 Normal Extension (S1) 4 Good Abduction 4+ Good+ Left Flexion (L2) 4+ Good+ Extension (S1) 4- Good- Abduction 4+ Good+ Knee Strength Knee Manual Muscle Testing Right Flexion (S2) 5 Normal Extension (L3) 5 Normal Left Flexion (S2) 5 Normal Extension (L3) 5 Normal PT-OP-Q Treatments Start: 09/26/18 13:01 Freq: Status: Active Protocol: Document 11/01/18 09:45 AMB (Rec: 11/01/18 15:50 AMB [email or web address]) Therapeutic Exercises Supine Exercises 8 Supine Exercise Name double leg lift Reps/Minutes 2x10 Comments modified with bent knees 7 Supine Exercise Name TrA SLR Reps/Minutes 2x10 4 Supine Exercise Name bridges Equipment Used Red PT ball Reps/Minutes 2x10 3 Supine Exercise Name lower trunk rotation Equipment Used Red PT ball Reps/Minutes 15 Sidelying Exercises 3 Sidelying Exercise Name modified side plank Reps/Minutes 15x4 Comments on forearm and knees 2 Sidelying Exercise Name clamshell Reps/Minutes 2x10 Comments #3 tb resist 1 Sidelying Exercise Name hip abd Reps/Minutes 2x10 Manual Therapy Treatment Soft Tissue Mobilization 1 Body Location L hip Mobilization Type Myofascial Release Sustained Pressure Intensity/Depth Moderate Body Position Sidelying Comments L piriformis PT-OP-R Modalities Start: 09/26/18 13:01 Freq: Status: Active Protocol: Document 10/16/18 08:53 SA (Rec: 10/16/18 09:03 SA [email or web address]) Hot Pack/Cold Pack Treatment Cold Pack Location L hip/ITB Patient Position Sidelying Treatment Duration (minutes) 10 PT-OP-T Assessment and Plan Start: 09/26/18 13:01 Freq: Status: Active Protocol: Document 11/01/18 09:45 AMB (Rec: 11/01/18 15:50 AMB [email or web address]) Physical Therapy Assessment Assessment Summary Assessment Sleeping continues to be the biggest issue for the patient, continued to reinforce pillows as necessary to support. Physical Therapy Plan Next Visit Focus/Plan Next Note Type Treatment Note Next Visit Plan Continue to progress core stability ther ex and educate for body mechanics and desk ergonomics.
--- NOTE | 2018-11-06 13:40 | PT.OTN ---
Current Diagnoses Radiculopathy, lumbar region (11/06/18) Physical Therapy Treatment Note PT-OP-A Visit Information Start: 09/26/18 13:01 Freq: Status: Active Protocol: Document 11/06/18 09:00 AMB (Rec: 11/06/18 13:40 AMB [email or web address]) Out-Patient Physical Therapy Visit Information Visit Information Visit Type Treatment Note Visit Start Time 09:00 Visit Stop Time 09:45 Total Visit Minutes 45 Visit Number 12 PT-OP-B Current Condition Start: 09/26/18 13:01 Freq: Status: Active Protocol: Document 09/26/18 14:30 AMB (Rec: 09/26/18 16:16 AMB [email or web address]) Current Condition History of Current Condition Onset Date 1 month ago Current Complaints L knee pain that radiates into hip and numbness into lower leg History of Current Condition Burning and sparking pain in lateral thigh and posterior hip that can go into anterior leg but not into foot has been present for one month. Started in the evening after working out (treadmill, weights, supine ball exercise) but exercise felt good while she was doing it but pain started that evening. Wakes up at night due to the pain. Hurts the most in the medial knee. Knee can feel swollen. Prior Treatments and Tests Saw knee doctor in [place] who says her X-ray is fine and thinks it is coming from her back. Treatment Goals Patient/Caregiver Goals Return to walking Prior Functional Status Baseline Function- Recreation/Hobbies Walking 3-4 miles 4x/week Current Functional Impairments (Reported) Functional Limitations- ADL's Difficulty sleeping, sitting, walking due to pain in knee. Personal Factors Other Personal Factors That May Effect Pt's is undergoing Therapy/Recovery back surgery in 12 days. History of TKA with revision on the left 5 years ago. PT-OP-C Subjective Start: 09/26/18 13:01 Freq: Status: Active Protocol: Document 11/06/18 09:00 AMB (Rec: 11/06/18 13:40 AMB [email or web address]) OP-PT Subjective Patient Comments Patient Comments Pt woke up due to pain at 3am. Reports 6/10 when she woke, 1/10 pain now. Pt is not sure if it was sitting on her computer chair or her exercises, but something flared up. PT-OP-G Mobility & Gait Start: 09/26/18 13:01 Freq: Status: Active Protocol: Document 09/26/18 14:30 AMB (Rec: 09/26/18 16:31 AMB [email or web address]) OP Gait Assessment Comments Gait Comments Pt ambulating well when not painful, slight restriction in trunk rotation. PT-OP-J Posture/Palpation/Skin Start: 09/26/18 13:01 Freq: Status: Active Protocol: Document 09/26/18 14:30 AMB (Rec: 09/26/18 16:31 AMB [email or web address]) Posture Evaluation Comments Posture Comments Stands with right shoulder high. Mild increased thoracic kyphosis and lumbar lordosis. Palpation Assessment Location One Palpation Location Left leg Palpation Findings Soft Tissue Tightness Muscle Guarding Tenderness Palpation Details Tenderness and tightness L>R at piriformis and IT band. No pain with fibular mobilization. Tightness into knee flexion but this is baseline for the patient s/p TKA. Mildly tender with PAs through lumbar and sacrum, does not radiate. PT-OP-K Range of Motion Start: 09/26/18 13:01 Freq: Status: Active Protocol: Document 09/26/18 14:30 AMB (Rec: 09/26/18 16:31 AMB [email or web address]) Lumbar Spine Range of Motion Lumbar Spine Active Percentage Testing Position Standing Flexion 100 Extension 25 Lateral Flexion Left 50 Lateral Flexion Right 75 Comments pain with extension, stiffness with sidebending bilaterally Hip Goniometric Range of Motion Hip ROM Limitations Comments AROM WNL bilat Knee Goniometric Range of Motion Knee ROM Limitations Comments Extension WNL, flexion limited by TKA to approx 110. PT-OP-L Special Tests Start: 09/26/18 13:01 Freq: Status: Active Protocol: Document 09/26/18 14:30 AMB (Rec: 09/26/18 16:31 AMB [email or web address]) Special Tests Lumbar Spine Special Tests Manual Traction Test Results positive for reduction in pain Straight Leg Raise Test Results negative for increase in pain PT-OP-M Strength Start: 09/26/18 13:01 Freq: Status: Active Protocol: Document 09/26/18 14:30 AMB (Rec: 09/26/18 16:31 AMB [email or web address]) Hip Strength Hip Manual Muscle Testing Right Flexion (L2) 5 Normal Extension (S1) 4 Good Abduction 4+ Good+ Left Flexion (L2) 4+ Good+ Extension (S1) 4- Good- Abduction 4+ Good+ Knee Strength Knee Manual Muscle Testing Right Flexion (S2) 5 Normal Extension (L3) 5 Normal Left Flexion (S2) 5 Normal Extension (L3) 5 Normal PT-OP-Q Treatments Start: 09/26/18 13:01 Freq: Status: Active Protocol: Document 11/06/18 09:00 AMB (Rec: 11/06/18 13:40 AMB [email or web address]) Therapeutic Exercises Supine Exercises 4 Supine Exercise Name bridges Equipment Used Green PT ball Reps/Minutes 2x10 3 Supine Exercise Name lower trunk rotation Equipment Used Green PT ball Reps/Minutes 15 Sidelying Exercises 2 Sidelying Exercise Name clamshell Reps/Minutes 2x10 Comments #3 tb resist Standing Exercises 1 Standing Exercise Name bicep curl Equipment Used 5# Comments focus on posture/core Manual Therapy Treatment Soft Tissue Mobilization 1 Body Location L hip Mobilization Type Myofascial Release Sustained Pressure Intensity/Depth Moderate Body Position Sidelying Comments L piriformis PT-OP-R Modalities Start: 09/26/18 13:01 Freq: Status: Active Protocol: Document 10/16/18 08:53 SA (Rec: 10/16/18 09:03 SA [email or web address]) Hot Pack/Cold Pack Treatment Cold Pack Location L hip/ITB Patient Position Sidelying Treatment Duration (minutes) 10 PT-OP-T Assessment and Plan Start: 09/26/18 13:01 Freq: Status: Active Protocol: Document 11/06/18 09:00 AMB (Rec: 11/06/18 13:40 AMB [email or web address]) Physical Therapy Assessment Assessment Summary Assessment Changed HEP to free weights rather than pt's home cable unit, as pt is concerned it is causing pain flare ups. Pt did need cues for form. Physical Therapy Plan Next Visit Focus/Plan Next Note Type Treatment Note Next Visit Plan Continue to progress core stability ther ex and educate for body mechanics and desk ergonomics.
--- NOTE | 2018-11-08 14:51 | PT.OTN ---
Current Diagnoses Radiculopathy, lumbar region (11/08/18) Physical Therapy Treatment Note PT-OP-A Visit Information Start: 09/26/18 13:01 Freq: Status: Active Protocol: Document 11/08/18 09:45 AMB (Rec: 11/08/18 13:00 AMB [email or web address]) Out-Patient Physical Therapy Visit Information Visit Information Visit Type Treatment Note Visit Start Time 09:45 Visit Stop Time 10:30 Total Visit Minutes 45 Visit Number 13 PT-OP-B Current Condition Start: 09/26/18 13:01 Freq: Status: Active Protocol: Document 09/26/18 14:30 AMB (Rec: 09/26/18 16:16 AMB [email or web address]) Current Condition History of Current Condition Onset Date 1 month ago Current Complaints L knee pain that radiates into hip and numbness into lower leg History of Current Condition Burning and sparking pain in lateral thigh and posterior hip that can go into anterior leg but not into foot has been present for one month. Started in the evening after working out (treadmill, weights, supine ball exercise) but exercise felt good while she was doing it but pain started that evening. Wakes up at night due to the pain. Hurts the most in the medial knee. Knee can feel swollen. Prior Treatments and Tests Saw knee doctor in [place] who says her X-ray is fine and thinks it is coming from her back. Treatment Goals Patient/Caregiver Goals Return to walking Prior Functional Status Baseline Function- Recreation/Hobbies Walking 3-4 miles 4x/week Current Functional Impairments (Reported) Functional Limitations- ADL's Difficulty sleeping, sitting, walking due to pain in knee. Personal Factors Other Personal Factors That May Effect Pt's is undergoing Therapy/Recovery back surgery in 12 days. History of TKA with revision on the left 5 years ago. PT-OP-C Subjective Start: 09/26/18 13:01 Freq: Status: Active Protocol: Document 11/08/18 09:45 AMB (Rec: 11/08/18 13:00 AMB [email or web address]) OP-PT Subjective Patient Comments Patient Comments Pt is having more IT band pain today than piriformis pain. PT-OP-G Mobility & Gait Start: 09/26/18 13:01 Freq: Status: Active Protocol: Document 09/26/18 14:30 AMB (Rec: 01/30/19 16:31 AMB [email or web address]) OP Gait Assessment Comments Gait Comments Pt ambulating well when not painful, slight restriction in trunk rotation. PT-OP-J Posture/Palpation/Skin Start: 09/26/18 13:01 Freq: Status: Active Protocol: Document 09/26/18 14:30 AMB (Rec: 09/26/18 16:31 AMB [email or web address]) Posture Evaluation Comments Posture Comments Stands with right shoulder high. Mild increased thoracic kyphosis and lumbar lordosis. Palpation Assessment Location One Palpation Location Left leg Palpation Findings Soft Tissue Tightness Muscle Guarding Tenderness Palpation Details Tenderness and tightness L>R at piriformis and IT band. No pain with fibular mobilization. Tightness into knee flexion but this is baseline for the patient s/p TKA. Mildly tender with PAs through lumbar and sacrum, does not radiate. PT-OP-K Range of Motion Start: 09/26/18 13:01 Freq: Status: Active Protocol: Document 09/26/18 14:30 AMB (Rec: 09/26/18 16:31 AMB [email or web address]) Lumbar Spine Range of Motion Lumbar Spine Active Percentage Testing Position Standing Flexion 100 Extension 25 Lateral Flexion Left 50 Lateral Flexion Right 75 Comments pain with extension, stiffness with sidebending bilaterally Hip Goniometric Range of Motion Hip ROM Limitations Comments AROM WNL bilat Knee Goniometric Range of Motion Knee ROM Limitations Comments Extension WNL, flexion limited by TKA to approx 110. PT-OP-L Special Tests Start: 09/26/18 13:01 Freq: Status: Active Protocol: Document 09/26/18 14:30 AMB (Rec: 09/26/18 16:31 AMB [email or web address]) Special Tests Lumbar Spine Special Tests Manual Traction Test Results positive for reduction in pain Straight Leg Raise Test Results negative for increase in pain PT-OP-M Strength Start: 09/26/18 13:01 Freq: Status: Active Protocol: Document 09/26/18 14:30 AMB (Rec: 09/26/18 16:31 AMB [email or web address]) Hip Strength Hip Manual Muscle Testing Right Flexion (L2) 5 Normal Extension (S1) 4 Good Abduction 4+ Good+ Left Flexion (L2) 4+ Good+ Extension (S1) 4- Good- Abduction 4+ Good+ Knee Strength Knee Manual Muscle Testing Right Flexion (S2) 5 Normal Extension (L3) 5 Normal Left Flexion (S2) 5 Normal Extension (L3) 5 Normal PT-OP-Q Treatments Start: 09/26/18 13:01 Freq: Status: Active Protocol: Document 11/08/18 09:45 AMB (Rec: 11/08/18 13:00 AMB [email or web address]) Therapeutic Exercises Supine Exercises 4 Supine Exercise Name bridges Equipment Used Green PT ball Reps/Minutes 2x10 3 Supine Exercise Name lower trunk rotation Equipment Used Green PT ball Reps/Minutes 15 Sidelying Exercises 2 Sidelying Exercise Name clamshell Reps/Minutes 2x10 Comments #3 tb resist Standing Exercises 3 Standing Exercise Name scaption Resistance 3# Reps/Minutes 3x10 Comments to shoulder height 2 Standing Exercise Name tricep press Resistance 3# Reps/Minutes 3x10 1 Standing Exercise Name bicep curl Equipment Used 5# Comments focus on posture/core Manual Therapy Treatment Soft Tissue Mobilization 1 Body Location L hip Mobilization Type Myofascial Release Sustained Pressure Intensity/Depth Moderate Body Position Sidelying Comments L piriformis; L IT band PT-OP-R Modalities Start: 09/26/18 13:01 Freq: Status: Active Protocol: Document 10/16/18 08:53 SA (Rec: 10/16/18 09:03 SA [email or web address]) Hot Pack/Cold Pack Treatment Cold Pack Location L hip/ITB Patient Position Sidelying Treatment Duration (minutes) 10 PT-OP-T Assessment and Plan Start: 09/26/18 13:01 Freq: Status: Active Protocol: Document 11/08/18 09:45 AMB (Rec: 11/08/18 13:00 AMB [email or web address]) Physical Therapy Assessment Assessment Summary Assessment Handouts for free weights today with work in front of mirror for body mechanics and posture with HEP. Physical Therapy Plan Next Visit Focus/Plan Next Note Type Treatment Note Next Visit Plan Continue to progress core stability ther ex and educate for body mechanics and desk ergonomics.
--- NOTE | 2018-11-12 10:37 | PT.OTN ---
Current Diagnoses Radiculopathy, lumbar region (11/12/18) Physical Therapy Treatment Note PT-OP-A Visit Information Start: 09/26/18 13:01 Freq: Status: Active Protocol: Document 11/12/18 09:45 AMB (Rec: 11/12/18 10:35 AMB [id number]) Out-Patient Physical Therapy Visit Information Visit Information Visit Type Treatment Note Visit Start Time 09:45 Visit Stop Time 10:30 Total Visit Minutes 45 Visit Number 14 PT-OP-B Current Condition Start: 09/26/18 13:01 Freq: Status: Active Protocol: Document 09/26/18 14:30 AMB (Rec: 09/26/18 16:16 AMB [email or web address]) Current Condition History of Current Condition Onset Date 1 month ago Current Complaints L knee pain that radiates into hip and numbness into lower leg History of Current Condition Burning and sparking pain in lateral thigh and posterior hip that can go into anterior leg but not into foot has been present for one month. Started in the evening after working out (treadmill, weights, supine ball exercise) but exercise felt good while she was doing it but pain started that evening. Wakes up at night due to the pain. Hurts the most in the medial knee. Knee can feel swollen. Prior Treatments and Tests Saw knee doctor in [place] who says her X-ray is fine and thinks it is coming from her back. Treatment Goals Patient/Caregiver Goals Return to walking Prior Functional Status Baseline Function- Recreation/Hobbies Walking 3-4 miles 4x/week Current Functional Impairments (Reported) Functional Limitations- ADL's Difficulty sleeping, sitting, walking due to pain in knee. Personal Factors Other Personal Factors That May Effect Pt's is undergoing Therapy/Recovery back surgery in 12 days. History of TKA with revision on the left 5 years ago. PT-OP-C Subjective Start: 09/26/18 13:01 Freq: Status: Active Protocol: Document 11/12/18 09:45 AMB (Rec: 11/12/18 10:35 AMB [id number]) OP-PT Subjective Patient Comments Patient Comments Pt states she had two good days, but then was painful again today. PT-OP-G Mobility & Gait Start: 09/26/18 13:01 Freq: Status: Active Protocol: Document 09/26/18 14:30 AMB (Rec: 09/26/18 16:31 AMB [email or web address]) OP Gait Assessment Comments Gait Comments Pt ambulating well when not painful, slight restriction in trunk rotation. PT-OP-J Posture/Palpation/Skin Start: 09/26/18 13:01 Freq: Status: Active Protocol: Document 09/26/18 14:30 AMB (Rec: 09/26/18 16:31 AMB [email or web address]) Posture Evaluation Comments Posture Comments Stands with right shoulder high. Mild increased thoracic kyphosis and lumbar lordosis. Palpation Assessment Location One Palpation Location Left leg Palpation Findings Soft Tissue Tightness Muscle Guarding Tenderness Palpation Details Tenderness and tightness L>R at piriformis and IT band. No pain with fibular mobilization. Tightness into knee flexion but this is baseline for the patient s/p TKA. Mildly tender with PAs through lumbar and sacrum, does not radiate. PT-OP-K Range of Motion Start: 09/26/18 13:01 Freq: Status: Active Protocol: Document 09/26/18 14:30 AMB (Rec: 09/26/18 16:31 AMB [email or web address]) Lumbar Spine Range of Motion Lumbar Spine Active Percentage Testing Position Standing Flexion 100 Extension 25 Lateral Flexion Left 50 Lateral Flexion Right 75 Comments pain with extension, stiffness with sidebending bilaterally Hip Goniometric Range of Motion Hip ROM Limitations Comments AROM WNL bilat Knee Goniometric Range of Motion Knee ROM Limitations Comments Extension WNL, flexion limited by TKA to approx 110. PT-OP-L Special Tests Start: 09/26/18 13:01 Freq: Status: Active Protocol: Document 09/26/18 14:30 AMB (Rec: 09/26/18 16:31 AMB [email or web address]) Special Tests Lumbar Spine Special Tests Manual Traction Test Results positive for reduction in pain Straight Leg Raise Test Results negative for increase in pain PT-OP-M Strength Start: 09/26/18 13:01 Freq: Status: Active Protocol: Document 09/26/18 14:30 AMB (Rec: 09/26/18 16:31 AMB [email or web address]) Hip Strength Hip Manual Muscle Testing Right Flexion (L2) 5 Normal Extension (S1) 4 Good Abduction 4+ Good+ Left Flexion (L2) 4+ Good+ Extension (S1) 4- Good- Abduction 4+ Good+ Knee Strength Knee Manual Muscle Testing Right Flexion (S2) 5 Normal Extension (L3) 5 Normal Left Flexion (S2) 5 Normal Extension (L3) 5 Normal PT-OP-Q Treatments Start: 09/26/18 13:01 Freq: Status: Active Protocol: Document 11/12/18 09:45 AMB (Rec: 11/12/18 10:36 AMB [id number]) Therapeutic Exercises Supine Exercises 8 Supine Exercise Name double leg lift Reps/Minutes 2x10 Comments modified with bent knees 4 Supine Exercise Name bridges Equipment Used Green PT ball Reps/Minutes 2x10 3 Supine Exercise Name lower trunk rotation Reps/Minutes 15 Sidelying Exercises 2 Sidelying Exercise Name clamshell Reps/Minutes 2x10 Comments #3 tb resist 1 Sidelying Exercise Name hip abd Reps/Minutes 2x10 Manual Therapy Treatment Soft Tissue Mobilization 1 Body Location L hip Mobilization Type Myofascial Release Sustained Pressure Intensity/Depth Moderate Body Position Sidelying Comments L piriformis; PT-OP-R Modalities Start: 09/26/18 13:01 Freq: Status: Active Protocol: Document 10/16/18 08:53 SA (Rec: 10/16/18 09:03 SA [email or web address]) Hot Pack/Cold Pack Treatment Cold Pack Location L hip/ITB Patient Position Sidelying Treatment Duration (minutes) 10 PT-OP-T Assessment and Plan Start: 09/26/18 13:01 Freq: Status: Active Protocol: Document 11/12/18 09:45 AMB (Rec: 11/12/18 10:18 AMB [email or web address]) Physical Therapy Assessment Goals Four Impairment positional tolerance Short Term Goal (STG) The patient will sit for 1 hour with leg pain of 4/10 or less. STG Duration MET [employer] Goal (LTG) The patient will sleep for 6 hours without waking due to pain. 10/29/18: Partially met- intermittent LTG Duration 8 weeks Three Impairment body mechanics Short Term Goal (STG) The patient will assist her with bed mobility s/p his lumbar surgery with good body mechanics without an increase in pain. STG Duration MET [employer] Goal (LTG) The patient will perform a squat with good body mechanics to lift 10 pounds without an increase in pain. LTG Duration 8 weeks Two Impairment gait Short Term Goal (STG) The patient will ambulate for 15 minutes with pain of 4/10 or less. STG Duration MET [employer] Goal (LTG) The patient will ambulate for 2 miles with pain of 4/10 or less. LTG Duration 8 weeks Assessment Summary Assessment Pt is flared up after sleeping , but overall doing well with her exercise. Feels she has made good improvement, but sleep continues to be a problem. Physical Therapy Plan Next Visit Focus/Plan Next Note Type Progress Note Next Visit Plan Continue to progress core stability ther ex and educate for body mechanics and desk ergonomics.
--- NOTE | 2018-11-15 11:57 | PT.OTN ---
Current Diagnoses Radiculopathy, lumbar region (11/15/18) Physical Therapy Treatment Note PT-OP-A Visit Information Start: 09/26/18 13:01 Freq: Status: Active Protocol: Document 11/15/18 10:30 BS (Rec: 11/15/18 11:34 BS [email or web address]) Out-Patient Physical Therapy Visit Information Visit Information Visit Type Progress Note Visit Start Time 10:30 Visit Stop Time 11:10 Total Visit Minutes 40 Visit Number 15 PT-OP-B Current Condition Start: 09/26/18 13:01 Freq: Status: Active Protocol: Document 09/26/18 14:30 AMB (Rec: 09/26/18 16:16 AMB [email or web address]) Current Condition History of Current Condition Onset Date 1 month ago Current Complaints L knee pain that radiates into hip and numbness into lower leg History of Current Condition Burning and sparking pain in lateral thigh and posterior hip that can go into anterior leg but not into foot has been present for one month. Started in the evening after working out (treadmill, weights, supine ball exercise) but exercise felt good while she was doing it but pain started that evening. Wakes up at night due to the pain. Hurts the most in the medial knee. Knee can feel swollen. Prior Treatments and Tests Saw knee doctor in [place] who says her X-ray is fine and thinks it is coming from her back. Treatment Goals Patient/Caregiver Goals Return to walking Prior Functional Status Baseline Function- Recreation/Hobbies Walking 3-4 miles 4x/week Current Functional Impairments (Reported) Functional Limitations- ADL's Difficulty sleeping, sitting, walking due to pain in knee. Personal Factors Other Personal Factors That May Effect Pt's is undergoing Therapy/Recovery back surgery in 12 days. History of TKA with revision on the left 5 years ago. PT-OP-C Subjective Start: 09/26/18 13:01 Freq: Status: Active Protocol: Document 11/15/18 10:30 BS (Rec: 11/15/18 11:34 BS [email or web address]) OP-PT Subjective Patient Comments Patient Comments Pt reports her L knee has been more painful, especially with stairs. Sitting, sleeping, and walking for prolonged periods of time continue to increase L buttock pain. Pt reports 1/10 L buttock pain during session, no aggravation with activity but noticeable. PT-OP-G Mobility & Gait Start: 09/26/18 13:01 Freq: Status: Active Protocol: Document 09/26/18 14:30 AMB (Rec: 09/26/18 16:31 AMB [email or web address]) OP Gait Assessment Comments Gait Comments Pt ambulating well when not painful, slight restriction in trunk rotation. PT-OP-J Posture/Palpation/Skin Start: 09/26/18 13:01 Freq: Status: Active Protocol: Document 09/26/18 14:30 AMB (Rec: 09/26/18 16:31 AMB [email or web address]) Posture Evaluation Comments Posture Comments Stands with right shoulder high. Mild increased thoracic kyphosis and lumbar lordosis. Palpation Assessment Location One Palpation Location Left leg Palpation Findings Soft Tissue Tightness Muscle Guarding Tenderness Palpation Details Tenderness and tightness L>R at piriformis and IT band. No pain with fibular mobilization. Tightness into knee flexion but this is baseline for the patient s/p TKA. Mildly tender with PAs through lumbar and sacrum, does not radiate. PT-OP-K Range of Motion Start: 09/26/18 13:01 Freq: Status: Active Protocol: Document 11/15/18 10:30 AMB (Rec: 11/15/18 10:49 AMB [id number]) Lumbar Spine Range of Motion Lumbar Spine Active Percentage Flexion 100 Extension 50 Rotation Left 75 Rotation Right 100 Lateral Flexion Left 75 Lateral Flexion Right 75 Comments stiffness with sidebending and rotation to the left PT-OP-L Special Tests Start: 09/26/18 13:01 Freq: Status: Active Protocol: Document 09/26/18 14:30 AMB (Rec: 09/26/18 16:31 AMB [email or web address]) Special Tests Lumbar Spine Special Tests Manual Traction Test Results positive for reduction in pain Straight Leg Raise Test Results negative for increase in pain PT-OP-M Strength Start: 09/26/18 13:01 Freq: Status: Active Protocol: Document 11/15/18 10:30 AMB (Rec: 11/15/18 10:46 AMB [id number]) Hip Strength Hip Manual Muscle Testing Right Flexion (L2) 4+ Good+ Extension (S1) 4 Good Abduction 4+ Good+ External Rotation 4 Good Internal Rotation 5 Normal Left Flexion (L2) 4+ Good+ Extension (S1) 4+ Good+ Abduction 4+ Good+ External Rotation 4+ Good+ Internal Rotation 5 Normal Knee Strength Knee Manual Muscle Testing Right Flexion (S2) 5 Normal Extension (L3) 4+ Good+ Left Flexion (S2) 5 Normal Extension (L3) 4+ Good+ PT-OP-Q Treatments Start: 09/26/18 13:01 Freq: Status: Active Protocol: Document 11/15/18 10:30 BS (Rec: 11/15/18 11:34 BS [email or web address]) Therapeutic Exercises Supine Exercises 4 Supine Exercise Name bridges Reps/Minutes 2x10 Sidelying Exercises 2 Sidelying Exercise Name clamshell Reps/Minutes 2x10 Comments L piriformis sustained pressure Sitting Exercises 1 Sitting Exercise Name Alternating marches with LAQ Side bilateral Equipment Used green czech ball Reps/Minutes 2x10 Standing Exercises 5 Standing Exercise Name Mini squats Resistance #3 band above knees Reps/Minutes x8 Comments L knee pain 4 Standing Exercise Name Sidestepping, monster walks Resistance #3 band, below knees Equipment Used UE support railing Reps/Minutes 3 laps x10 ft Manual Therapy Treatment Soft Tissue Mobilization 1 Body Location L hip Mobilization Type Myofascial Release Sustained Pressure Intensity/Depth Moderate Body Position Sidelying Comments L piriformis, with and without active L hip ER PT-OP-R Modalities Start: 09/26/18 13:01 Freq: Status: Active Protocol: Document 10/16/18 08:53 SA (Rec: 10/16/18 09:03 SA [email or web address]) Hot Pack/Cold Pack Treatment Cold Pack Location L hip/ITB Patient Position Sidelying Treatment Duration (minutes) 10 PT-OP-T Assessment and Plan Start: 09/26/18 13:01 Freq: Status: Active Protocol: Document 11/15/18 10:30 BS (Rec: 11/15/18 11:34 BS [email or web address]) Physical Therapy Assessment Goals Four Impairment positional tolerance Short Term Goal (STG) The patient will sit for 1 hour with leg pain of 4/10 or less. STG Duration MET [facility] Goal (LTG) The patient will sleep for 6 hours without waking due to pain. 10/29/18: Partially met- intermittent LTG Duration 8 weeks Three Impairment body mechanics Short Term Goal (STG) The patient will assist her with bed mobility s/p his lumbar surgery with good body mechanics without an increase in pain. STG Duration MET [facility] Goal (LTG) The patient will perform a squat with good body mechanics to lift 10 pounds without an increase in pain. LTG Duration 8 weeks Two Impairment gait Short Term Goal (STG) The patient will ambulate for 15 minutes with pain of 4/10 or less. STG Duration MET [facility] Goal (LTG) The patient will ambulate for 2 miles with pain of 4/10 or less. PROGRESSING TOWARD. LTG Duration 8 weeks Assessment Summary Assessment Pt continues to experience L buttock/piriformis pain with prolonged sitting, walking, and with sleeping. Pt has intermittent B knee pain with stairs and walking. Pt has increased activity tolerance with less frequency of L buttock pain but continues to beenfit from skilled PT to address listed impairments and promote return to PLOF pain free. Physical Therapy Plan Next Visit Focus/Plan Next Note Type Treatment Note Next Visit Plan Continue to progress core stabilization exercises and hip strengthening. Address B knee pain with stairs.
--- NOTE | 2018-11-15 15:31 | PT.OPPOC ---
Current Diagnoses Radiculopathy, lumbar region (11/15/18) Provider Visit Care Team Role Provider Type Angus Jernigan MD Primary Care Provider Non-Staff Specialty: Family Practice Address: [address], [address], [place], [address] Email: Other Providers Specialty: Address: Phone: Fax: Email: Isaiah Hobbs MD Attending Provider Non-Staff Specialty: Orthopedic Surgery Address: [address], [address], [place], [address] Email: Plan Of Care PT-OP-T Assessment and Plan Start: 09/26/18 13:01 Freq: Status: Active Protocol: Document 11/15/18 10:30 BS (Rec: 11/15/18 11:34 BS [email or web address]) Physical Therapy Assessment Goals Four Impairment positional tolerance Short Term Goal (STG) The patient will sit for 1 hour with leg pain of 4/10 or less. STG Duration MET Nursing Home Goal (LTG) The patient will sleep for 6 hours without waking due to pain. 10/29/18: Partially met- intermittent LTG Duration 8 weeks Three Impairment body mechanics Short Term Goal (STG) The patient will assist her with bed mobility s/p his lumbar surgery with good body mechanics without an increase in pain. STG Duration MET Nursing Home Goal (LTG) The patient will perform a squat with good body mechanics to lift 10 pounds without an increase in pain. LTG Duration 8 weeks Two Impairment gait Short Term Goal (STG) The patient will ambulate for 15 minutes with pain of 4/10 or less. STG Duration MET Nursing Home Goal (LTG) The patient will ambulate for 2 miles with pain of 4/10 or less. PROGRESSING TOWARD. LTG Duration 8 weeks Assessment Summary Assessment Pt continues to experience L buttock/piriformis pain with prolonged sitting, walking, and with sleeping. Pt has intermittent B knee pain with stairs and walking. Pt has increased activity tolerance with less frequency of L buttock pain but continues to benefit from skilled PT to address listed impairments and promote return to PLOF pain free. Physical Therapy Plan Frequency and Duration Frequency of Treatment 2x/Week Duration of Treatment 8 weeks Plan of Care Start Date 11/15/18 Plan of Care End Date 01/10/19 Therapeutic Interventions Therapeutic Interventions Balance Training Home Exercise Program Joint Mobilizations Manual Therapy Neuromuscular Re-education Patient/Caregiver Education Self-Care/Home Management Soft Tissue Mobilization Taping Therapeutic Activities Therapeutic Exercises Modalities Cold Pack/Ice Massage Electric Stimulation Hot Packs Iontophoresis Ultrasound Next Visit Focus/Plan Next Note Type Treatment Note Next Visit Plan Continue to progress core stabilization exercises and hip strengthening. Address B knee pain with stairs. Plan of Care Dates Plan of Care Start Date 11/15/18 Plan of Care End Date 01/10/19 Please Sign and Return: I have reviewed this Plan of Care and certify that the skilled therapy services above are required to meet the patient?s needs. Physician Signature Date Printed Name and Credentials Clinical Instructor Signature Printed Name and Credentials
--- NOTE | 2018-11-22 16:22 | PT.OTN ---
Current Diagnoses Radiculopathy, lumbar region (11/22/18) Physical Therapy Treatment Note PT-OP-A Visit Information Start: 09/26/18 13:01 Freq: Status: Active Protocol: Document 11/22/18 15:59 BS (Rec: 11/22/18 16:15 BS [email or web address]) Out-Patient Physical Therapy Visit Information Visit Information Visit Type Treatment Note Visit Start Time 14:30 Visit Stop Time 15:20 Total Visit Minutes 50 Visit Number 16 PT-OP-B Current Condition Start: 09/26/18 13:01 Freq: Status: Active Protocol: Document 09/26/18 14:30 AMB (Rec: 09/26/18 16:16 AMB [email or web address]) Current Condition History of Current Condition Onset Date 1 month ago Current Complaints L knee pain that radiates into hip and numbness into lower leg History of Current Condition Burning and sparking pain in lateral thigh and posterior hip that can go into anterior leg but not into foot has been present for one month. Started in the evening after working out (treadmill, weights, supine ball exercise) but exercise felt good while she was doing it but pain started that evening. Wakes up at night due to the pain. Hurts the most in the medial knee. Knee can feel swollen. Prior Treatments and Tests Saw knee doctor in [place] who says her X-ray is fine and thinks it is coming from her back. Treatment Goals Patient/Caregiver Goals Return to walking Prior Functional Status Baseline Function- Recreation/Hobbies Walking 3-4 miles 4x/week Current Functional Impairments (Reported) Functional Limitations- ADL's Difficulty sleeping, sitting, walking due to pain in knee. Personal Factors Other Personal Factors That May Effect Pt's is undergoing Therapy/Recovery back surgery in 12 days. History of TKA with revision on the left 5 years ago. PT-OP-C Subjective Start: 09/26/18 13:01 Freq: Status: Active Protocol: Document 11/22/18 15:59 BS (Rec: 11/22/18 16:15 BS [email or web address]) OP-PT Subjective Patient Comments Patient Comments Pt states that he sciatica is barely noticeable anymore and that both knees continue to be painful. PT-OP-G Mobility & Gait Start: 09/26/18 13:01 Freq: Status: Active Protocol: Document 09/26/18 14:30 AMB (Rec: 09/26/18 16:31 AMB [email or web address]) OP Gait Assessment Comments Gait Comments Pt ambulating well when not painful, slight restriction in trunk rotation. PT-OP-J Posture/Palpation/Skin Start: 09/26/18 13:01 Freq: Status: Active Protocol: Document 09/26/18 14:30 AMB (Rec: 09/26/18 16:31 AMB [email or web address]) Posture Evaluation Comments Posture Comments Stands with right shoulder high. Mild increased thoracic kyphosis and lumbar lordosis. Palpation Assessment Location One Palpation Location Left leg Palpation Findings Soft Tissue Tightness Muscle Guarding Tenderness Palpation Details Tenderness and tightness L>R at piriformis and IT band. No pain with fibular mobilization. Tightness into knee flexion but this is baseline for the patient s/p TKA. Mildly tender with PAs through lumbar and sacrum, does not radiate. PT-OP-K Range of Motion Start: 09/26/18 13:01 Freq: Status: Active Protocol: Document 11/15/18 10:30 AMB (Rec: 11/15/18 10:49 AMB [id number]) Lumbar Spine Range of Motion Lumbar Spine Active Percentage Flexion 100 Extension 50 Rotation Left 75 Rotation Right 100 Lateral Flexion Left 75 Lateral Flexion Right 75 Comments stiffness with sidebending and rotation to the left PT-OP-L Special Tests Start: 09/26/18 13:01 Freq: Status: Active Protocol: Document 09/26/18 14:30 AMB (Rec: 09/26/18 16:31 AMB [email or web address]) Special Tests Lumbar Spine Special Tests Manual Traction Test Results positive for reduction in pain Straight Leg Raise Test Results negative for increase in pain PT-OP-M Strength Start: 09/26/18 13:01 Freq: Status: Active Protocol: Document 11/15/18 10:30 AMB (Rec: 11/15/18 10:46 AMB [id number]) Hip Strength Hip Manual Muscle Testing Right Flexion (L2) 4+ Good+ Extension (S1) 4 Good Abduction 4+ Good+ External Rotation 4 Good Internal Rotation 5 Normal Left Flexion (L2) 4+ Good+ Extension (S1) 4+ Good+ Abduction 4+ Good+ External Rotation 4+ Good+ Internal Rotation 5 Normal Knee Strength Knee Manual Muscle Testing Right Flexion (S2) 5 Normal Extension (L3) 4+ Good+ Left Flexion (S2) 5 Normal Extension (L3) 4+ Good+ PT-OP-Q Treatments Start: 09/26/18 13:01 Freq: Status: Active Protocol: Document 11/22/18 15:59 BS (Rec: 11/22/18 16:15 BS [email or web address]) Therapeutic Exercises Supine Exercises 8 Supine Exercise Name TA x2 leg lift w/ single leg extension hold Reps/Minutes 2x30 hold Comments modified with bent knees 4 Supine Exercise Name bridges Equipment Used 65cm ball Reps/Minutes 2x8 Comments 90/90 and with legs straight Sidelying Exercises 1 Sidelying Exercise Name hip abduction Equipment Used #1 band Reps/Minutes x10 Comments band above knees Sitting Exercises 2 Sitting Exercise Name LAQs Equipment Used 65cm ball Reps/Minutes x12 each Comments VCs to avoid full knee ext 1 Sitting Exercise Name Alternating marches with LAQ Equipment Used 65cm ball Reps/Minutes 2x10 Standing Exercises 6 Standing Exercise Name chest press OH Side bilateral Resistance 3# Reps/Minutes x10 each Comments bilateral and unilateral 3 Standing Exercise Name scaption Resistance 3# Reps/Minutes x10 Comments to shoulder height 2 Standing Exercise Name tricep press OH Side bilateral Reps/Minutes x15 PT-OP-R Modalities Start: 09/26/18 13:01 Freq: Status: Active Protocol: Document 10/16/18 08:53 SA (Rec: 10/16/18 09:03 SA [email or web address]) Hot Pack/Cold Pack Treatment Cold Pack Location L hip/ITB Patient Position Sidelying Treatment Duration (minutes) 10 PT-OP-T Assessment and Plan Start: 09/26/18 13:01 Freq: Status: Active Protocol: Document 11/22/18 15:59 BS (Rec: 11/22/18 16:15 BS [email or web address]) Physical Therapy Assessment Assessment Summary Assessment Reviewed HEP with patient and provided feedback on form and progression of exercises. Education for proper lifting techniques and body mechanics. Physical Therapy Plan Next Visit Focus/Plan Next Note Type Treatment Note Next Visit Plan Review HEP progression with pt regarding any questions. Assess progress toward goals with possible d/c if no longer having low back/buttock pain.
--- NOTE | 2018-12-03 16:01 | PT.OTN ---
Current Diagnoses Radiculopathy, lumbar region (12/03/18) Physical Therapy Treatment Note PT-OP-A Visit Information Start: 09/26/18 13:01 Freq: Status: Active Protocol: Document 12/03/18 14:00 BS (Rec: 12/03/18 15:41 BS [email or web address]) Out-Patient Physical Therapy Visit Information Visit Information Visit Type Treatment Note Visit Start Time 13:45 Visit Stop Time 14:30 Total Visit Minutes 45 Visit Number 17 PT-OP-B Current Condition Start: 09/26/18 13:01 Freq: Status: Active Protocol: Document 09/26/18 14:30 AMB (Rec: 09/26/18 16:16 AMB [email or web address]) Current Condition History of Current Condition Onset Date 1 month ago Current Complaints L knee pain that radiates into hip and numbness into lower leg History of Current Condition Burning and sparking pain in lateral thigh and posterior hip that can go into anterior leg but not into foot has been present for one month. Started in the evening after working out (treadmill, weights, supine ball exercise) but exercise felt good while she was doing it but pain started that evening. Wakes up at night due to the pain. Hurts the most in the medial knee. Knee can feel swollen. Prior Treatments and Tests Saw knee doctor in [place] who says her X-ray is fine and thinks it is coming from her back. Treatment Goals Patient/Caregiver Goals Return to walking Prior Functional Status Baseline Function- Recreation/Hobbies Walking 3-4 miles 4x/week Current Functional Impairments (Reported) Functional Limitations- ADL's Difficulty sleeping, sitting, walking due to pain in knee. Personal Factors Other Personal Factors That May Effect Pt's is undergoing Therapy/Recovery back surgery in 12 days. History of TKA with revision on the left 5 years ago. PT-OP-C Subjective Start: 09/26/18 13:01 Freq: Status: Active Protocol: Document 12/03/18 14:00 BS (Rec: 12/03/18 15:41 BS [email or web address]) OP-PT Subjective Patient Comments Patient Comments Pt states that if she is consistent with daily HEP she does not have LBP, but that if she misses a day then she has a flare up. She is considering an MRI for her low back as she is frustrated that is has not completed cleared up. PT-OP-G Mobility & Gait Start: 09/26/18 13:01 Freq: Status: Active Protocol: Document 09/26/18 14:30 AMB (Rec: 09/26/18 16:31 AMB [email or web address]) OP Gait Assessment Comments Gait Comments Pt ambulating well when not painful, slight restriction in trunk rotation. PT-OP-J Posture/Palpation/Skin Start: 09/26/18 13:01 Freq: Status: Active Protocol: Document 09/26/18 14:30 AMB (Rec: 09/26/18 16:31 AMB [email or web address]) Posture Evaluation Comments Posture Comments Stands with right shoulder high. Mild increased thoracic kyphosis and lumbar lordosis. Palpation Assessment Location One Palpation Location Left leg Palpation Findings Soft Tissue Tightness Muscle Guarding Tenderness Palpation Details Tenderness and tightness L>R at piriformis and IT band. No pain with fibular mobilization. Tightness into knee flexion but this is baseline for the patient s/p TKA. Mildly tender with PAs through lumbar and sacrum, does not radiate. PT-OP-K Range of Motion Start: 09/26/18 13:01 Freq: Status: Active Protocol: Document 11/15/18 10:30 AMB (Rec: 11/15/18 10:49 AMB [id number]) Lumbar Spine Range of Motion Lumbar Spine Active Percentage Flexion 100 Extension 50 Rotation Left 75 Rotation Right 100 Lateral Flexion Left 75 Lateral Flexion Right 75 Comments stiffness with sidebending and rotation to the left PT-OP-L Special Tests Start: 09/26/18 13:01 Freq: Status: Active Protocol: Document 09/26/18 14:30 AMB (Rec: 09/26/18 16:31 AMB [email or web address]) Special Tests Lumbar Spine Special Tests Manual Traction Test Results positive for reduction in pain Straight Leg Raise Test Results negative for increase in pain PT-OP-M Strength Start: 09/26/18 13:01 Freq: Status: Active Protocol: Document 11/15/18 10:30 AMB (Rec: 11/15/18 10:46 AMB [id number]) Hip Strength Hip Manual Muscle Testing Right Flexion (L2) 4+ Good+ Extension (S1) 4 Good Abduction 4+ Good+ External Rotation 4 Good Internal Rotation 5 Normal Left Flexion (L2) 4+ Good+ Extension (S1) 4+ Good+ Abduction 4+ Good+ External Rotation 4+ Good+ Internal Rotation 5 Normal Knee Strength Knee Manual Muscle Testing Right Flexion (S2) 5 Normal Extension (L3) 4+ Good+ Left Flexion (S2) 5 Normal Extension (L3) 4+ Good+ PT-OP-Q Treatments Start: 09/26/18 13:01 Freq: Status: Active Protocol: Document 12/03/18 14:00 BS (Rec: 12/03/18 15:41 BS [email or web address]) Therapeutic Exercises Supine Exercises 4 Supine Exercise Name bridges Equipment Used 65cm ball Reps/Minutes x15 Comments legs straight 3 Supine Exercise Name lower trunk rotation Reps/Minutes x15 each 2 Supine Exercise Name Sciatic Nerve flossing Side bilateral Reps/Minutes x15 each leg Sitting Exercises 3 Sitting Exercise Name Sciatic N flossing Side bilateral Reps/Minutes x10 each leg Comments with ankle PF/DF 2 Sitting Exercise Name LAQs Equipment Used 65cm ball Reps/Minutes x15 each Comments VCs to avoid full knee ext 1 Sitting Exercise Name Alternating marches with LAQ Equipment Used 65cm ball Reps/Minutes 2x10 Manual Therapy Treatment Manual Traction Lumbar Details Manual traction Body Position Supine PT-OP-R Modalities Start: 09/26/18 13:01 Freq: Status: Active Protocol: Document 10/16/18 08:53 SA (Rec: 10/16/18 09:03 SA [email or web address]) Hot Pack/Cold Pack Treatment Cold Pack Location L hip/ITB Patient Position Sidelying Treatment Duration (minutes) 10 PT-OP-T Assessment and Plan Start: 09/26/18 13:01 Freq: Status: Active Protocol: Document 12/03/18 14:00 BS (Rec: 12/03/18 15:41 BS [email or web address]) Physical Therapy Assessment Goals Four Impairment positional tolerance Short Term Goal (STG) The patient will sit for 1 hour with leg pain of 4/10 or less. STG Duration MET Show Host Goal (LTG) The patient will sleep for 6 hours without waking due to pain. 10/29/18: Partially met- intermittent LTG Duration 8 weeks Three Impairment body mechanics Short Term Goal (STG) The patient will assist her with bed mobility s/p his lumbar surgery with good body mechanics without an increase in pain. STG Duration MET [facility] Goal (LTG) The patient will perform a squat with good body mechanics to lift 10 pounds without an increase in pain. Partially Met. LTG Duration 8 weeks Two Impairment gait Short Term Goal (STG) The patient will ambulate for 15 minutes with pain of 4/10 or less. MET Show Host Goal (LTG) The patient will ambulate for 2 miles with pain of 4/10 or less. Partially Met LTG Duration 8 weeks Assessment Summary Assessment Pt has made improvements in reduction of LBP and LE radicular symptoms and has met most goals set upon initial evaluation. She no longer has LE radicular symptoms but has LBP intermittently with prolonged sitting and standing , especially if she does not do prescribed HEP daily. Pt is considering an MRI and is open to explore the possibility of an injection to relieve her LBP. Physical Therapy Plan Next Visit Focus/Plan Next Note Type Discharge Summary Next Visit Plan Pt plans to continue with HEP independently and will call if she needs therapy.
--- NOTE | 2019-03-22 09:26 | PT.OPDS ---
Current Diagnoses Radiculopathy, lumbar region (12/03/18) Provider Visit Care Team Role Provider Type Angus Jernigan MD Primary Care Provider Non-Staff Specialty: Family Practice Address: [address], [address], [place], [address] Email: Other Providers Specialty: Address: Phone: Fax: Email: Isaiah Hobbs MD Attending Provider Non-Staff Specialty: Orthopedic Surgery Address: [address], [address], [place], [address] Email: Visit Number Visit Number 17 Discharge Summary PT-OP-B Current Condition Start: 09/26/18 13:01 Freq: Status: Active Protocol: Document 09/26/18 14:30 AMB (Rec: 09/26/18 16:16 AMB [email or web address]) Current Condition History of Current Condition Onset Date 1 month ago Current Complaints L knee pain that radiates into hip and numbness into lower leg History of Current Condition Burning and sparking pain in lateral thigh and posterior hip that can go into anterior leg but not into foot has been present for one month. Started in the evening after working out (treadmill, weights, supine ball exercise) but exercise felt good while she was doing it but pain started that evening. Wakes up at night due to the pain. Hurts the most in the medial knee. Knee can feel swollen. Prior Treatments and Tests Saw knee doctor in [place] who says her X-ray is fine and thinks it is coming from her back. Treatment Goals Patient/Caregiver Goals Return to walking Prior Functional Status Baseline Function- Recreation/Hobbies Walking 3-4 miles 4x/week Current Functional Impairments (Reported) Functional Limitations- ADL's Difficulty sleeping, sitting, walking due to pain in knee. Personal Factors Other Personal Factors That May Effect Pt's is undergoing Therapy/Recovery back surgery in 12 days. History of TKA with revision on the left 5 years ago. PT-OP-C Subjective Start: 09/26/18 13:01 Freq: Status: Active Protocol: Document 12/03/18 14:00 BS (Rec: 12/03/18 15:41 BS [email or web address]) OP-PT Subjective Patient Comments Patient Comments Pt states that if she is consistent with daily HEP she does not have LBP, but that if she misses a day then she has a flare up. She is considering an MRI for her low back as she is frustrated that is has not completed cleared up. PT-OP-G Mobility & Gait Start: 09/26/18 13:01 Freq: Status: Active Protocol: Document 09/26/18 14:30 AMB (Rec: 09/26/18 16:31 AMB [email or web address]) OP Gait Assessment Comments Gait Comments Pt ambulating well when not painful, slight restriction in trunk rotation. PT-OP-J Posture/Palpation/Skin Start: 09/26/18 13:01 Freq: Status: Active Protocol: Document 09/26/18 14:30 AMB (Rec: 09/26/18 16:31 AMB [email or web address]) Posture Evaluation Comments Posture Comments Stands with right shoulder high. Mild increased thoracic kyphosis and lumbar lordosis. Palpation Assessment Location One Palpation Location Left leg Palpation Findings Soft Tissue Tightness Muscle Guarding Tenderness Palpation Details Tenderness and tightness L>R at piriformis and IT band. No pain with fibular mobilization. Tightness into knee flexion but this is baseline for the patient s/p TKA. Mildly tender with PAs through lumbar and sacrum, does not radiate. PT-OP-K Range of Motion Start: 09/26/18 13:01 Freq: Status: Active Protocol: Document 11/15/18 10:30 AMB (Rec: 11/15/18 10:49 AMB [id number]) Lumbar Spine Range of Motion Lumbar Spine Active Percentage Flexion 100 Extension 50 Rotation Left 75 Rotation Right 100 Lateral Flexion Left 75 Lateral Flexion Right 75 Comments stiffness with sidebending and rotation to the left PT-OP-L Special Tests Start: 09/26/18 13:01 Freq: Status: Active Protocol: Document 09/26/18 14:30 AMB (Rec: 09/26/18 16:31 AMB [email or web address]) Special Tests Lumbar Spine Special Tests Manual Traction Test Results positive for reduction in pain Straight Leg Raise Test Results negative for increase in pain PT-OP-M Strength Start: 09/26/18 13:01 Freq: Status: Active Protocol: Document 11/15/18 10:30 AMB (Rec: 11/15/18 10:46 AMB [id number]) Hip Strength Hip Manual Muscle Testing Right Flexion (L2) 4+ Good+ Extension (S1) 4 Good Abduction 4+ Good+ External Rotation 4 Good Internal Rotation 5 Normal Left Flexion (L2) 4+ Good+ Extension (S1) 4+ Good+ Abduction 4+ Good+ External Rotation 4+ Good+ Internal Rotation 5 Normal Knee Strength Knee Manual Muscle Testing Right Flexion (S2) 5 Normal Extension (L3) 4+ Good+ Left Flexion (S2) 5 Normal Extension (L3) 4+ Good+ PT-OP-T Assessment and Plan Start: 09/26/18 13:01 Freq: Status: Active Protocol: Document 03/22/19 09:21 AMB (Rec: 03/22/19 09:26 AMB [email or web address]) Physical Therapy Assessment Goals Four Impairment positional tolerance Short Term Goal (STG) The patient will sit for 1 hour with leg pain of 4/10 or less. STG Duration MET Document Analyst Goal (LTG) The patient will sleep for 6 hours without waking due to pain. LTG Duration PARTIALLY MET Three Impairment body mechanics Short Term Goal (STG) The patient will assist her with bed mobility s/p his lumbar surgery with good body mechanics without an increase in pain. STG Duration MET Document Analyst Goal (LTG) The patient will perform a squat with good body mechanics to lift 10 pounds without an increase in pain. LTG Duration PARTIALLY MET Two Impairment gait Short Term Goal (STG) The patient will ambulate for 15 minutes with pain of 4/10 or less. STG Duration MET Document Analyst Goal (LTG) The patient will ambulate for 2 miles with pain of 4/10 or less. Partially Met LTG Duration PARTIALLY MET Assessment Summary Assessment At her last appointment in November, Shayla had made improvements in reduction of LBP and LE radicular symptoms and has met most goals set upon initial evaluation. She no longer has LE radicular symptoms but has LBP intermittently with prolonged sitting and standing, especially if she does not do prescribed HEP daily. She did not want to be discharged at the time, but did want to be on hold and call back if she had a recurrence of her back pain. Since she has not called in the last 3 months, she will be discharged at this time. Physical Therapy Plan Discharge Physical Therapy Discharge Reasons Goals Met
== END 2019-03-22 13:43 | disposition home or self-care (01) ==
LOC: PHYS 13:45
PROVIDERS: PCP Family Medicine; Visit Provider Orthopaedic Surgery
DX: M54.16 Radiculopathy, lumbar region (principal)
CPT/HCPCS: 97110; 97140; 97162; 97530

== ENCOUNTER → 2018-12-12 09:06 | Outpatient (CLI) | payer MEDICARE, OTHER, SELFPAY ==
--- NOTE | 2018-12-12 | DI.MRI.S_ITS ---
PROCEDURE: MR LUMBAR SPINE WO CON INDICATIONS: Low back pain TECHNIQUE: Noncontrast sagittal T1 spin echo and T2 fast echo, sagittal STIR, axial T1 and T2 fast spin echo through the lumbar spine. In cases with scoliosis, additional coronal T2 fast spin echo may be performed. COMPARISON: None. FINDINGS: Image quality: Excellent. Alignment and Curvature: There is trace retrolisthesis of L2 on L3 and L3 on L4, trace right anterolisthesis of L4 on L5. Bone Marrow: Marrow is of normal overall signal. Mild reactive endplate changes are present at L2-3. No acute vertebral body compression fractures. Spinal Cord: Conus medullaris terminates at the L1 level. Visualized cord demonstrates normal signal and size. Paraspinous Soft Tissues: No paravertebral masses. Discs: Moderate desiccation is present throughout the lumbar spine. L1-L2: Minimal disc bulge without spinal stenosis or foraminal narrowing. L2-L3: Mild disc bulge with minimal canal narrowing. Mild bilateral foraminal narrowing with facet and ligamentum flavum hypertrophy. L3-L4: Mild disc bulge with mild spinal stenosis. Mild to moderate right and mild left foraminal narrowing with facet and ligamentum flavum hypertrophy. L4-L5: Mild disc bulge with moderate spinal stenosis. Moderate left and mild right foraminal narrowing with facet and ligamentum flavum hypertrophy. L5-S1: Mild disc bulge without spinal stenosis. Mild bilateral foraminal narrowing with facet and ligamentum flavum hypertrophy. IMPRESSION: 1. Multilevel degenerative changes. 2. Spinal stenosis is most prominent at L4-5 secondary to disc bulge with contributing effects of facet/ligamentum flavum arthropathy. 3. Multilevel foraminal narrowing most prominent at L4-5 secondary to facet arthropathy and anterolisthesis. Dictated by: Jacquelin Camacho M.D. on 12/12/2018 at 12:44 Approved by: Jacquelin Camacho M.D. on 12/12/2018 at 12:50
== END ==
PROVIDERS: PCP Family Medicine; Visit Provider Orthopaedic Surgery
DX: M47.816 Spondylosis without myelopathy or radiculopathy, lumbar region (principal); M47.817 Spondylosis without myelopathy or radiculopathy, lumbosacral region; M51.26 Other intervertebral disc displacement, lumbar region; M51.27 Other intervertebral disc displacement, lumbosacral region; M48.061 Spinal stenosis, lumbar region without neurogenic claudication; M48.07 Spinal stenosis, lumbosacral region; M43.16 Spondylolisthesis, lumbar region
CPT/HCPCS: 72148

== ENCOUNTER → 2019-01-08 07:32 | Outpatient (CLI) | payer MEDICARE, OTHER, SELFPAY ==
--- NOTE | 2019-01-08 | DI.MRI.S_ITS ---
PROCEDURE: MR KNEE RT WO CON INDICATIONS: Unspecified internal derangement of right knee TECHNIQUE: Noncontrast sagittal PD fast spin echo and T2 fast spin echo with fat saturation, sagittal 3-D FLASH with fat saturation; coronal T1 spin echo and PD fast spin echo with fat saturation, and axial PD fast spin echo with fat saturation through the knee. COMPARISON: None. FINDINGS: Image quality: Excellent. Menisci: Macerated ill-defined lateral meniscal tear, with conspicuous absence of body, and abnormal signal extending to the posterior horn. Please correlate with any surgical history. There is also medial meniscal tear involving the body with abnormal signal extending to the superior articular surface and truncation of the free margin. Cruciate ligaments: The anterior and posterior cruciate ligaments appear intact. Medial structures: The medial collateral ligament appears intact. The posterior oblique ligament, semimembranosus tendon insertions, oblique popliteal ligament, and meniscocapsular junction appear intact. Visualized portions of the pes anserinus tendons appear normal. No abnormal bursal fluid. Lateral structures: The lateral collateral ligament, long and short heads of the biceps femoris tendon appear intact. The popliteus tendon appears normal; the popliteofibular ligament appears intact. The posterosuperior and anteroinferior popliteomeniscal fascicles appear intact. The arcuate and fabellofibular ligaments appear intact, on either side of the lateral inferior geniculate artery. Iliotibial band appears normal. Anterior structures: Prepatellar and superficial infrapatellar subcutaneous edema/fluid. The quadriceps and patellar tendons appear intact. Patellar alignment is normal. No femoral trochlear dysplasia or ventral trochlear prominence. No edema in the infrapatellar fat pad. Bones and cartilage: No focal marrow contusion or discrete low signal fracture line. Within the medial compartment, diffuse partial thickness loss of the femoral and tibial articular cartilage. Within the lateral compartment, diffuse surface fraying and partial-thickness loss of the central weightbearing femoral and tibial articular cartilage Within the patellofemoral compartment, diffuse partial thickness loss and surface fraying of the patellar and femoral trochlear articular cartilage Joint space: No formed Norris's cyst is seen. Moderate joint effusion noted. No evidence of intra-articular loose bodies. IMPRESSION: Macerated ill-defined lateral meniscal tear, involving the body and posterior horn. Medial meniscal tear involving the body. Tricompartmental joint degeneration as above. Moderate joint effusion. Dictated by: Moo Ross M.D. on 01/08/2019 at 8:57 Approved by: Moo Ross M.D. on 01/08/2019 at 9:13
== END ==
PROVIDERS: PCP Family Medicine; Visit Provider Orthopaedic Surgery
DX: S83.281A Other tear of lateral meniscus, current injury, right knee, initial encounter (principal); S83.241A Other tear of medial meniscus, current injury, right knee, initial encounter; M17.11 Unilateral primary osteoarthritis, right knee; M25.461 Effusion, right knee
CPT/HCPCS: 73721

== ENCOUNTER → 2019-01-11 08:46 | Outpatient (CLI) | payer MEDICARE, OTHER, SELFPAY ==
[2019-01-11 10:09] LABS: Add Manual Diff / Slide Review NO; Basophils Absolute Auto 0 /uL (0-100); Basophils Percent Auto 0.7 % (0-2); Eosinophils Absolute Auto 100 /uL (0-450); Eosinophils Percent Auto 2.5 % (2-4); Hematocrit 41.6 % (36-46); Hemoglobin 14.7 g/dL (12.0-16.0); Lymphocytes Absolute Auto 1300 /uL (1100-4500); Lymphocytes Percent Auto 41.6 % (25-40); Mean Corpuscular HGB Conc 35.3 % (30-36); Mean Corpuscular Hemoglobin 32.4 PG (26-34); Mean Corpuscular Volume 91.9 fL (80-100); Monocytes Absolute Auto 300 /uL (0-900); Monocytes Percent Auto 9.3 % (3-14); Neutrophils Absolute Auto 1500 /uL (1500-7000); Neutrophils Percent Auto 45.9 % (50-75); Platelet Count 195 X10^3/uL (150-400); Red Blood Cell Count 4.52 X10^6/uL (4.0-5.2); Red Cell Distribution Width 13.1 % (11.6-14.8); White Blood Cell Count 3.2 X10^3/uL (4.5-11.0)
[2019-01-11 11:07] LABS: Alanine Aminotransferase 28 IU/L (9-52); Albumin 4.1 g/dL (3.5-5.0); Albumin Globulin Ratio 1.6 (1.0-2.8); Alkaline Phosphatase 59 U/L (38-126); Aspartate Aminotransferase 28 IU/L (14-36); Bilirubin Total 0.7 mg/dL (0.2-1.3); Blood Urea Nitrogen 24 mg/dL (7-17); Calcium 9.3 mg/dL (8.4-10.2); Carbon Dioxide 29 mmol/L (22-32); Chloride 101 mmol/L (98-107); Cholesterol 232 mg/dL (140-199); Estimated Glomerular Filt Rate > 60.0 mL/min (>60); Globulin 2.6 g/dL (1.7-4.1); Glucose 101 mg/dL (80-110); HDL Cholesterol 89 mg/dL (40-60); HEMOLYSIS < 15 (0-50); LDL Cholesterol Calculated 129 mg/dL (<100); Potassium 4.7 mmol/L (3.4-5.1); Sodium 137 mmol/L (137-145); Total Protein 6.7 g/dL (6.3-8.2); Triglycerides 68 mg/dL (35-150)
== END ==
PROVIDERS: PCP Family Medicine; Visit Provider Family Medicine
DX: E78.00 Pure hypercholesterolemia, unspecified (principal); Z79.899 Other long term (current) drug therapy
CPT/HCPCS: 36415; 80053; 80061; 85025

== ENCOUNTER → 2020-01-27 07:18 | Outpatient (CLI) | payer MEDICARE, OTHER, SELFPAY ==
[2020-01-27 07:37] LABS: Add Manual Diff / Slide Review NO; Basophils Absolute Auto 0 /uL (0-100); Basophils Percent Auto 0.6 % (0-2); Eosinophils Absolute Auto 100 /uL (0-450); Eosinophils Percent Auto 2.5 % (2-4); Hematocrit 40.8 % (36-46); Hemoglobin 14.2 g/dL (12.0-16.0); Lymphocytes Absolute Auto 1400 /uL (1100-4500); Lymphocytes Percent Auto 41.7 % (25-40); Mean Corpuscular HGB Conc 34.7 % (30-36); Monocytes Absolute Auto 300 /uL (0-900); Monocytes Percent Auto 9.6 % (3-14); Neutrophils Absolute Auto 1600 /uL (1500-7000); Neutrophils Percent Auto 45.6 % (50-75); Platelet Count 192 X10^3/uL (150-400); Red Blood Cell Count 4.44 X10^6/uL (4.0-5.2); Red Cell Distribution Width 13.1 % (11.6-14.8); White Blood Cell Count 3.4 X10^3/uL (4.5-11.0)
[2020-01-27 07:54] LABS: Alanine Aminotransferase 23 IU/L (<35); Albumin 4.6 g/dL (3.5-5.0); Albumin Globulin Ratio 1.6 (1.0-2.8); Alkaline Phosphatase 56 U/L (38-126); Aspartate Aminotransferase 32 IU/L (14-36); BUN Creatinine Ratio 22.2 (6-22); Bilirubin Total 0.8 mg/dL (0.2-1.3); Blood Urea Nitrogen 16 mg/dL (7-17); Calcium 9.7 mg/dL (8.4-10.2); Carbon Dioxide 26 mmol/L (22-32); Chloride 107 mmol/L (98-107); Cholesterol 241 mg/dL (140-199); Estimated Glomerular Filt Rate > 60.0 mL/min (>60); Globulin 2.9 g/dL (1.7-4.1); Glucose 115 mg/dL (80-110); HDL Cholesterol 78 mg/dL (40-60); HEMOLYSIS < 15 (0-50); LDL Cholesterol Calculated 145 mg/dL (<100); Sodium 140 mmol/L (137-145); Total Protein 7.5 g/dL (6.3-8.2); Triglycerides 92 mg/dL (35-150)
[2020-01-27 08:34] LABS: TSH w/ Reflex to FT4 3.46 uIU/mL (0.47-4.68)
== END ==
PROVIDERS: PCP Internal Medicine; Referring Provider Internal Medicine; Visit Provider Internal Medicine
DX: D70.9 Neutropenia, unspecified (principal); E78.2 Mixed hyperlipidemia
CPT/HCPCS: 36415; 80053; 80061; 84443; 85025

== ENCOUNTER → 2020-01-28 08:37 | Outpatient (CLI) | payer MEDICARE, OTHER, SELFPAY ==
--- NOTE | 2020-01-28 | DI.MG.S_ITS ---
BILATERAL DIGITAL SCREENING MAMMOGRAM 3D/2D WITH CAD: 01/28/2020 CLINICAL: Routine screening. Family history of breast cancer. Comparison is made to exams dated: 11/15/2018 mammogram, 11/13/2017 mammogram, and 10/24/2016 mammogram - [facility]. There are scattered fibroglandular elements in both breasts. Current study was also evaluated with a Computer Aided Detection (CAD) system. No significant masses, calcifications, or other findings are seen in either breast. There has been no significant interval change. IMPRESSION: NEGATIVE There is no mammographic evidence of malignancy. A 1 year screening mammogram is recommended. This exam was interpreted at Station ID: [id number]. NOTE: For mammograms, a report in lay terms will be sent to the patient. Approximately 15% of breast malignancies will not be visualized mammographically. In the management of a palpable breast mass, a negative mammogram must not discourage biopsy of a clinically suspicious lesion. Electronically Signed By: Virginia rodriguez/alvaro:01/28/2020 11:18:44 copy to: Lyndsey Daniel letter sent: Normal Exam ACR BI-RADS Category 1: Negative 3341F
== END ==
PROVIDERS: PCP Internal Medicine; Referring Provider Internal Medicine; Visit Provider Internal Medicine
DX: Z12.31 Encounter for screening mammogram for malignant neoplasm of breast (principal); Z80.3 Family history of malignant neoplasm of breast
CPT/HCPCS: 77063; 77067

== ENCOUNTER → 2020-02-24 12:32 | Outpatient (CLI) | payer MEDICARE, OTHER, SELFPAY ==
--- NOTE | 2020-02-24 12:35 | DI.RAD.S_ITS ---
This blank DEXA report has been sent in error by the PACS system. The correct and complete report will be forthcoming in 1-2 days. Thank you for your patience and understanding. Dictated by: Kathya Lantigua MD, PhD on 02/25/2020 at 16:34 Approved by: Kathya Lantigua MD, PhD on 02/25/2020 at 16:34
== END ==
PROVIDERS: PCP Internal Medicine; Referring Provider Obstetrics & Gynecology; Visit Provider Obstetrics & Gynecology
DX: Z13.820 Encounter for screening for osteoporosis (principal); Z78.0 Asymptomatic menopausal state
CPT/HCPCS: 77080

== ENCOUNTER → 2021-02-01 08:02 | Outpatient (CLI) | payer MEDICARE, SELFPAY ==
--- NOTE | 2021-02-01 | DI.MG.S_ITS ---
BILATERAL DIGITAL SCREENING MAMMOGRAM 3D/2D WITH CAD: 02/01/2021 CLINICAL: Routine screening. Family history of breast cancer. Comparison is made to exams dated: 01/28/2020 mammogram, 11/15/2018 mammogram, and 11/13/2017 mammogram - [facility]. There are scattered fibroglandular elements in both breasts. Current study was also evaluated with a Computer Aided Detection (CAD) system. No significant masses, calcifications, or other findings are seen in either breast. There has been no significant interval change. IMPRESSION: NEGATIVE There is no mammographic evidence of malignancy. A 1 year screening mammogram is recommended. This exam was interpreted at Station ID: [id number]. NOTE: For mammograms, a report in lay terms will be sent to the patient. Approximately 15% of breast malignancies will not be visualized mammographically. In the management of a palpable breast mass, a negative mammogram must not discourage biopsy of a clinically suspicious lesion. Electronically Signed By: Virginia rodriguez/alvaro:02/01/2021 09:13:38 copy to: Lyndsey Daniel letter sent: Normal Exam ACR BI-RADS Category 1: Negative 3341F
== END ==
PROVIDERS: PCP Internal Medicine; Referring Provider Internal Medicine; Visit Provider Internal Medicine
DX: Z12.31 Encounter for screening mammogram for malignant neoplasm of breast (principal)
CPT/HCPCS: 77063; 77067

== ENCOUNTER → 2021-03-04 09:00 | Outpatient (CLI) | payer MEDICARE, SELFPAY ==
--- NOTE | 2021-03-04 | DI.NM.S_ITS ---
PROCEDURE: NM BONE 3 PHASE RADIOPHARMACEUTICAL: 19.9 mCi Tc-99m MDP IV. INDICATIONS: PAIN DUE TO TOTAL LEFT KNEE REPLACEMENT TECHNIQUE: Multiple bone scintigrams were obtained after intravenous injection of Tc-99m MDP, including flow, blood pool, and delayed images centered to the region of interest. COMPARISON: [facility], CR, XR KNEE ARTHRITIC SERIES RT, 12/20/2018, 15:39. [facility], MR, MR KNEE RT WO CON, 01/08/2019, 7:55. FINDINGS: A triple phase bone scan was obtained, including flow, blood pool and delayed images centered to the knees. The flow and blood pool images demonstrate symmetrical vascular activity to lower extremities bilaterally. There is left knee total arthroplasty. Delayed images demonstrate mildly increased uptake around the left knee prosthesis along the bone prosthesis interface. Increased uptake in the right knee on delayed images is noted, compatible with degenerative joint disease. IMPRESSION: 1. There is increased uptake around left knee prosthesis along the prosthesis and bone interface. The scintigraphic finding could indicate prosthesis loosening. Recommend radiographic and clinical correlation. No findings to suggest prosthesis infection. 2. Degenerative joint disease of the right knee. Dictated by: Nathan Wong M.D. on 03/04/2021 at 17:39 Approved by: Nathan Wong M.D. on 03/04/2021 at 17:45
== END ==
PROVIDERS: PCP Internal Medicine; Referring Provider Student in an Organized Health Care Education/Training Program; Visit Provider Student in an Organized Health Care Education/Training Program
DX: T84.84XA Pain due to internal orthopedic prosthetic devices, implants and grafts, initial encounter (principal); Z96.652 Presence of left artificial knee joint; M17.11 Unilateral primary osteoarthritis, right knee
CPT/HCPCS: 78315; A9503

== ENCOUNTER → 2022-02-02 07:33 | Outpatient (CLI) | payer MEDICARE, SELFPAY ==
--- NOTE | 2022-02-02 | DI.MG.S_ITS ---
BILATERAL DIGITAL SCREENING MAMMOGRAM 3D/2D WITH CAD: 02/02/2022 CLINICAL: Routine screening. Family history of breast cancer. Comparison is made to exams dated: 02/01/2021 mammogram, 01/28/2020 mammogram, and 11/15/2018 mammogram - [facility]. There are scattered fibroglandular elements in both breasts. Current study was also evaluated with a Computer Aided Detection (CAD) system. No significant masses, calcifications, or other findings are seen in either breast. There has been no significant interval change. IMPRESSION: NEGATIVE There is no mammographic evidence of malignancy. A 1 year screening mammogram is recommended. This exam was interpreted at Station ID: [id number]. NOTE: For mammograms, a report in lay terms will be sent to the patient. Approximately 15% of breast malignancies will not be visualized mammographically. In the management of a palpable breast mass, a negative mammogram must not discourage biopsy of a clinically suspicious lesion. Electronically Signed By: Zulay kirkpatrick/alvaro:02/02/2022 17:11:36 copy to: Lyndsey Daniel letter sent: Normal Exam ACR BI-RADS Category 1: Negative 3341F
== END ==
PROVIDERS: PCP Internal Medicine; Referring Provider Obstetrics & Gynecology; Visit Provider Obstetrics & Gynecology
DX: Z12.31 Encounter for screening mammogram for malignant neoplasm of breast (principal); Z80.3 Family history of malignant neoplasm of breast
CPT/HCPCS: 77063; 77067

== ENCOUNTER → 2022-04-28 09:44 | Outpatient (CLI) | payer MEDICARE, SELFPAY | PROVIDERS: PCP Internal Medicine; Referring Provider Internal Medicine; Visit Provider Internal Medicine | DX: Z78.0 Asymptomatic menopausal state (principal); M81.0 Age-related osteoporosis without current pathological fracture | CPT/HCPCS: 77080 ==

== ENCOUNTER → 2022-05-11 07:27 | Outpatient (CLI) | payer MEDICARE, SELFPAY | PROVIDERS: PCP Internal Medicine; Visit Provider Nurse Practitioner Family | DX: J02.9 Acute pharyngitis, unspecified (principal) | CPT/HCPCS: 87070 ==

== ENCOUNTER → 2022-07-24 13:07 | Outpatient (CLI) | payer MEDICARE, SELFPAY ==
--- NOTE | 2022-07-24 13:10 | DI.RAD.S_ITS ---
PROCEDURE: XR WRIST RT MIN 3V INDICATIONS: Fall onto right wrist now pain and swelling of right wrist TECHNIQUE: 4 views of the wrist were acquired. COMPARISON: [facility], CR, XR HAND 3+ VIEWS RIGHT, 02/23/2022, 10:53. FINDINGS: Bones: There is an apparent minimally displaced distal radius fracture, with intra-articular involvement. No additional fractures are detected. Degenerative changes are seen throughout, which are most prominent involving the 1st carpometacarpal joint. Milder degenerative changes are seen elsewhere. Scaphoid view: No navicular fractures are seen. Soft tissues: No suspicious soft tissue calcifications. IMPRESSION: Apparent minimally displaced distal radius fracture, with intra-articular involvement. If it would be helpful for clinical management decision making in this patient with this given history, please consider a dedicated wrist CT for further evaluation. Dictated by: Bright Barker M.D. on 07/24/2022 at 13:57 Approved by: Bright Barker M.D. on 07/24/2022 at 13:58
== END ==
PROVIDERS: PCP Internal Medicine; Referring Provider Physician Assistant; Visit Provider Physician Assistant
DX: S69.91XA Unspecified injury of right wrist, hand and finger(s), initial encounter (principal); W19.XXXA Unspecified fall, initial encounter
CPT/HCPCS: 73110

== ENCOUNTER 2022-10-29 08:39 | Emergency (ER) | payer MEDICARE, SELFPAY ==
[2022-10-29 08:41] VITALS: PULSE 82; O2SAT 93
[2022-10-29 08:42] VITALS: BP 163/84; PULSE 78; O2SAT 95
[2022-10-29 08:51] VITALS: BP 163/84; PULSE 78; RESP 17; TEMP 36.6; O2SAT 96; BMI 27.3
[2022-10-29 09:00] VITALS: BP 155/77; PULSE 69; O2SAT 95
--- NOTE | 2022-10-29 09:09 | ED_ITS ---
HPI - Eye Problem General Chief complaint: Eye Problems Stated complaint: Puncture to Left Eye Time Seen by Provider: 10/29/22 09:03 Source: patient Mode of arrival: Ambulatory History of Present Illness HPI Narrative: Patient is a 71-year-old female who presents with left eye injury. She reports that she was her eyelashes with a needle when she slipped. She has some conjunctival hemorrhage. She denies any blurry vision or double vision. Not on any anticoagulation but does take aspirin. Related Data Home Medications Medication Instructions Recorded Confirmed CA PANTOTHENATE/FOLIC ACID/VIT 1 tab PO QDAY ##0 10/16/12 07/24/22 (MULTIVITAMIN) Fish Oil 2,000 mg PO QDAY ##0 10/16/12 07/24/22 aspirin 81 mg tablet,delayed 81 mg PO QDAY ##0 01/09/17 07/24/22 release cholecalciferol (vitamin D3) 25 1,000 unit PO DAILY 03/05/18 07/24/22 mcg (1,000 unit) tablet (Vitamin D3) chromium picolinate 400 mcg tablet 400 mcg PO DAILY 03/05/18 07/24/22 glucosamine sulfate dipotassium Cl 1 cap PO DAILY 03/05/18 07/24/22 500 mg-chondroitin 400 mg capsule (Glucosamine Sulfate 2 KCL-Chondroitin) polyethylene glycol 3350 17 gram 03/05/18 07/24/22 oral powder packet (Miralax) Dragon [place] (175 mg THC/175 mg topical PRN 02/11/20 07/24/22 CBD/20 mg CBN) Vandana Emulsified Cannabinoids Probiotic Vaginal Care Blend PO 02/11/20 07/24/22 metronidazole 0.75 % topical cream 1 applictn topical BID 02/11/20 07/24/22 tretinoin 0.025 % topical cream 1 applictn topical BEDTIME 02/11/20 07/24/22 duloxetine 20 mg capsule,delayed 20 mg PO BID 02/17/21 07/24/22 release Previous Rx's Medication Instructions Recorded [MASSAGE THERAPY] ##0 01/09/17 lmnczmnmyy-tirrjuo-fvthuovi 50 1 cap PO PRN PRN headache #20 caps 01/17/18 mg-325 mg-40 mg capsule fluconazole 150 mg tablet 150 mg PO ONCE #1 tab 12/21/20 (Diflucan) CMP Estriol 0.2% Vaginal Cream 0.5 g vaginal .WEEKLY #30 grams 01/26/22 polymyxin B sulfate 10,000 1 drp EYE-LEFT QID #10 mL 10/29/22 unit-trimethoprim 1 mg/mL eye drops (Polytrim) polymyxin B sulfate 10,000 2 drp EYE-LEFT QID #10 mL 10/29/22 unit-trimethoprim 1 mg/mL eye drops (Polytrim) Allergies Allergy/AdvReac Type Severity Reaction Status Date / Time No Known Drug Allergies Allergy Verified 10/29/22 08:53 Review of Systems Review of Systems ROS Unobtainable: All systems reviewed & are unremarkable except as noted in HPI and below Patient History Medical History Actinic keratosis (10/2013) Anxiety (2013) Bilateral knee pain (2006) Chicken pox (Unknown) Colon polyps (2004) Constipation Depression Dry eyes Fibroids (1986) Heart disease Hemorrhoids (1978) History of headache (1974) History of irregular menstrual cycles (~1987) Injury of right wrist Measles (Unknown) Migraine (1974) Milium Osteoarthritis Photoaging of skin Precancerous skin lesion (2009) Seborrheic keratoses Shoulder pain (2010) Solar elastosis Surgical History History of knee replacement (05/21/14) Status post arthroscopy (12/11/09) Status post arthroscopy (11/04/14) Status post breast biopsy (2008) Status post hysterectomy (01/1991) Family History Father Lung cancer Mother Age: 91 Atrial fibrillation Hyperlipidemia Hypertension Mental health problem Brother No problems noted. Brother No problems noted. Grandfather Pneumonia Grandmother Heart attack Grandfather No problems noted. Grandmother Leukemia Social History Smoking Status: Never smoker Smoking Status: Never smoker alcohol intake frequency: 3 or more drinks per day Substance Use Type: does not use Exam Initial Vital Signs Initial Vital Signs: Vital Signs Pulse Rate 82 10/29/22 08:41 Pulse Oximetry 93 10/29/22 08:41 GENERAL: Alert pleasant 71-year-old female no acute distress Left eye was treated with proparacaine, stained with fluorescein. Probable lateral conjunctival laceration about 1 cm. No corneal laceration no corneal abrasion there is no dye uptake in that area. No foreign body. Pressure in left eye is 19mmHg Right eye pressure 22mmHg CARDIOVASCULAR: peripheral pulses in tact, cap refill <2 sec RESPIRATORY: No respiratory distress, speaks in full sentences without difficulty EXTREMITIES: Normal range of motion, no clubbing or edema. Neurovascularly intact NEUROLOGICAL: Cranial nerves II through XII grossly intact. Normal gait and speech. SKIN: Warm, dry, no petechiae, no rashes or lesions. Course Orders Ordered: Discontinued Medications Fluorescein Sodium (Fluorescein 1 Mg Strip) 1 mg EYE-BOTH NOW ONE Stop: 10/29/22 09:05 Last Admin: 10/29/22 09:19 Dose: 1 mg Documented By: PAVEL Proparacaine HCl (Proparacaine 0.5% Ophth Char) 1 drops EYE-BOTH NOW ONE Stop: 10/29/22 09:05 Last Admin: 10/29/22 09:20 Dose: 1 1000units Documented By: PAVEL Vital Signs Vital signs: Vital Signs - 8 hr 10/29/22 08:51 10/29/22 08:41 10/29/22 08:42 Temperature 98 F Pulse Rate 78 82 78 Respiratory Rate 17 Blood Pressure 163/84 H Pulse Oximetry 96 93 95 Oxygen Delivery Method Room Air 10/29/22 08:42 10/29/22 09:00 10/29/22 09:00 Temperature Pulse Rate 69 Respiratory Rate Blood Pressure 163/84 H 155/77 H Pulse Oximetry 95 Oxygen Delivery Method MDM - Eye Problem MDM Narrative Medical decision making narrative: Patient is 71-year-old female with injury to left eye. Laceration to conjunctiva. It appears 1 cm no evidence of globe rupture. Indication for sutu re at this Will put her on antibiotics. Discussed pain management and ice. Recommend outpatient follow-up with opthomology. Discharge Plan Departure Patient Disposition: Home Clinical Impression: Subconjunctival hemorrhage Conjunctival laceration Qualifiers: Encounter type: initial encounter Laterality: left Qualified Code(s): S05.32XA - Ocular laceration without prolapse or loss of intraocular tissue, left eye, initial encounter Instructions: DI for Subconjunctival Hemorrhage Activity Restrictions/Additional Instructions: *You have been diagnosed with conjunctival laceration and subconjunctival hemorrhage *What to do: At this time you may apply some light pressure and ice pack 20 time. Bleeding make it little worse. *Continue to take medications as directed Polytrim 1 drop every 6 hours for 1 week-> SENT TO [facility] Tylenol 1000 mg every hours if needed for pbks-ik-qzpsoifn *Follow up with your primary care provider in 2-3 days or call [phone] *Return to ER if you should have increasing bleeding visual changes or any new, worsening or concerning symptoms Prescriptions: New polymyxin B sulf-trimethoprim [Polytrim] 10,000 unit- 1 mg/mL drops 1 drp EYE-LEFT QID Qty: 10 0RF polymyxin B sulf-trimethoprim [Polytrim] 10,000 unit- 1 mg/mL drops 2 drp EYE-LEFT QID Qty: 10 0RF No Action CA PANTOTHENATE/FOLIC ACID/VIT (MULTIVITAMIN) 1 tab PO QDAY Qty: 0 Fish Oil 2,000 mg PO QDAY Qty: 0 aspirin 81 MG tablet,delayed release (DR/EC) 81 mg PO QDAY Qty: 0 [MASSAGE THERAPY] Qty: 0 0RF keoeainxxh-grxvxgj-mhemijol 50-325-40 mg capsule 1 cap PO PRN PRN (Reason: headache) Qty: 20 3RF CMP Estriol 0.2% Vaginal Cream 0.5 g Vaginal .WEEKLY Qty: 30 6RF tretinoin 0.025 % cream 1 applictn TOP BEDTIME metronidazole 0.75 % cream 1 applictn TOP BID Probiotic Vaginal Care Blend PO Dragon [place] (175 mg THC/175 mg CBD/20 mg CBN) Vandana Emulsified Cannabinoids topical PRN fluconazole [Diflucan] 150 mg tablet 150 mg PO ONCE Qty: 1 0RF Rx Instructions: as a single dose duloxetine 20 mg capsule,delayed release(DR/EC) 20 mg PO BID cholecalciferol (vitamin D3) [Vitamin D3] 1,000 unit Tablet 1,000 unit PO DAILY chromium picolinate 400 mcg Tablet 400 mcg PO DAILY glucosamine tran 2KCl-chondroit [Glucosamine Sulf-Chondroitin] 500-400 mg Capsule 1 cap PO DAILY polyethylene glycol 3350 [Miralax] 17 gram Powder In Packet Referrals: Shayla Sin MD [Physician] - Sawyer Jimenez MD [Physician] - Leia Enrique PA-C [Primary Care Provider] - Stand Alone Forms: Patient Portal/API
[2022-10-29] MEDS: FLUORESCEIN 1 MG STRIP EYE-BOTH (09:19)
[2022-10-29] MEDS: PROPARACAINE 0.5% OPHTH SOL 1 DROPS EYE-BOTH (09:20)
== END 2022-10-29 09:46 | disposition home or self-care (01) ==
PROVIDERS: Emergency Provider Emergency Medicine; PCP Physician Assistant
DX: S05.32XA Ocular laceration without prolapse or loss of intraocular tissue, left eye, initial encounter (principal); H11.30 Conjunctival hemorrhage, unspecified eye; W26.8XXA Contact with other sharp object(s), not elsewhere classified, initial encounter
CPT/HCPCS: 99282

== ENCOUNTER → 2023-02-06 09:08 | Outpatient (CLI) | payer MEDICARE, SELFPAY ==
--- NOTE | 2023-02-06 | DI.MG.S_ITS ---
BILATERAL DIGITAL SCREENING MAMMOGRAM 3D/2D WITH CAD: 02/06/2023 CLINICAL: Routine screening. Family history of breast cancer. Comparison is made to exams dated: 02/01/2021 mammogram, 02/02/2022 mammogram, and 01/28/2020 mammogram - [facility]. There are scattered areas of fibroglandular density in both breasts (category b / 25%-50% glandular tissue). Current study was also evaluated with a Computer Aided Detection (CAD) system. No significant masses, calcifications, or other findings are seen in either breast. There has been no significant interval change. IMPRESSION: NEGATIVE There is no mammographic evidence of malignancy. A 1 year screening mammogram is recommended. Based on the Tyrer Cuzick model (a risk assessment model) the patient's lifetime risk is 3.1% and her 10 year risk is 2.2%. According to the ACR, ACS, and NCCN guidelines, an annual breast MRI exam along with mammogram is recommended if the patient's lifetime risk is 20% or greater. This exam was interpreted at Station ID: [id number]. NOTE: For mammograms, a report in lay terms will be sent to the patient. Approximately 15% of breast malignancies will not be visualized mammographically. In the management of a palpable breast mass, a negative mammogram must not discourage biopsy of a clinically suspicious lesion. Electronically Signed By: Elijah clark/alvaro:02/06/2023 10:05:29 copy to: Lyndsey Daniel letter sent: Normal Exam ACR BI-RADS Category 1: Negative 3341F
== END ==
PROVIDERS: PCP Physician Assistant; Referring Provider Physician Assistant; Visit Provider Physician Assistant
DX: Z12.31 Encounter for screening mammogram for malignant neoplasm of breast (principal); Z80.3 Family history of malignant neoplasm of breast
CPT/HCPCS: 77063; 77067

== ENCOUNTER → 2024-02-08 09:07 | Outpatient (CLI) | payer MEDICARE, SELFPAY ==
--- NOTE | 2024-02-08 | DI.MG.S_ITS ---
BILATERAL DIGITAL SCREENING MAMMOGRAM 3D/2D WITH CAD: 02/08/2024 CLINICAL: Routine screening. Family history of breast cancer. Comparison is made to exams dated: 02/06/2023 mammogram, 02/02/2022 mammogram, 02/01/2021 mammogram, and 01/28/2020 mammogram - [facility]. There are scattered areas of fibroglandular density in both breasts (category b / 25%-50% glandular tissue). Current study was also evaluated with a Computer Aided Detection (CAD) system. No significant masses, calcifications, or other findings are seen in either breast. There has been no significant interval change. IMPRESSION: NEGATIVE There is no mammographic evidence of malignancy. A 1 year screening mammogram is recommended. Based on the Tyrer Cuzick model (a risk assessment model) the patient's lifetime risk is 3.0% and her 10 year risk is 2.2%. According to the ACR, ACS, and NCCN guidelines, an annual breast MRI exam along with mammogram is recommended if the patient's lifetime risk is 20% or greater. This exam was interpreted at Station ID: [id number]. NOTE: For mammograms, a report in lay terms will be sent to the patient. Approximately 15% of breast malignancies will not be visualized mammographically. In the management of a palpable breast mass, a negative mammogram must not discourage biopsy of a clinically suspicious lesion. Electronically Signed By: Misha becker/alvaro:02/08/2024 16:13:23 copy to: Lyndsey Daniel letter sent: Normal Exam ACR BI-RADS Category 1: Negative 3341F
== END ==
PROVIDERS: PCP Physician Assistant; Referring Provider Physician Assistant; Visit Provider Physician Assistant
DX: Z12.31 Encounter for screening mammogram for malignant neoplasm of breast (principal); Z80.3 Family history of malignant neoplasm of breast; R92.323 Mammographic fibroglandular density, bilateral breasts
CPT/HCPCS: 77063; 77067

== ENCOUNTER → 2024-04-26 12:05 | Outpatient (CLI) | payer MEDICARE, SELFPAY ==
--- NOTE | 2024-04-26 12:07 | DI.RAD.S_ITS ---
PROCEDURE: XR DEXA AXIAL SKELETON INDICATIONS: ROUTINE COMPARISON: [facility], , XR DEXA AXIAL SKELETON, 04/28/2022, 10:07. FINDINGS: Lumbar Spine: Bone mineral density 1.178 g/cm2, T score 1.3. There is interval 3.2% increase in total lumbar spine bone mineral density. Left Hip: Bone mineral density 0.895 g/cm2, T score -0.4. There is interval 0.1% decrease in left total hip bone mineral density. Left Femoral Neck: Bone mineral density 0.730 g/cm2, T score -1.1. There is interval 11.3% decrease in left femoral neck bone mineral density. Right Hip: Bone mineral density is 0.882 g/cm2, T score -0.5. There is interval 0.3% increase in right total hip bone mineral density. Right Femoral Neck: Bone mineral density 0.784 g/cm2, T score -0.6 unchanged from previous study. Fracture Risk Calculation (when applicable): 10-year fracture risk of a major osteoporotic fracture 11% and of a hip fracture 1.9%. (T score greater or equal to -1.0 to: NORMAL) (T score from -1.1 to -2.4: OSTEOPENIA) (T score less than or equal to -2.5: OSTEOPOROSIS) IMPRESSION: Osteopenia with 10 year fracture risk as above. Follow-up guidelines as follows: Osteoporosis: Consider a repeat DEXA and Vertebral Fracture Assessment (VFA) exam in 2 years or sooner if medically necessary, to reassess this patient's status. Osteopenia: Consider a repeat DEXA in 2-3 years to reassess this patient's status, or if there is a new clinical indication. Normal: Consider a repeat DEXA in 5 years or sooner, or if there is a new clinical indication. All treatment decisions require clinical judgment and consideration of individual patient factors, including patient preferences, comorbidities, previous drug use, risk factors not captured in the FRAX model (e.g., frailty, falls, vitamin D deficiency, increased bone turnover, interval significant decline in bone density ) and possible under- or over-estimation of fracture risk by FRAX. In addition, the NOF Guide recommends that FDA-approved medical therapies be considered in postmenopausal women and men age >= 50 years with a: * Hip or vertebral (clinical or morphometric) fracture * T-score of <=-2.5 at the spine or hip * Ten-year fracture probability by FRAX of >= 3% for hip fracture or >=20% for major osteoporotic fracture. People with diagnosed cases of osteoporosis or at high risk for fracture should have regular bone mineral density tests. For patients eligible for Medicare, routine testing is allowed once every 2 years. The testing frequency can be increased to one year for patients who have rapidly progressing disease, those who are receiving or discontinuing medical therapy to restore bone mass, or have additional risk factors. Dictated by: Zach Balbuena M.D. on 04/26/2024 at 14:20 Approved by: Zach Balbuena M.D. on 04/26/2024 at 14:24
== END ==
PROVIDERS: PCP Family Medicine; Referring Provider Family Medicine; Visit Provider Family Medicine
DX: N95.9 Unspecified menopausal and perimenopausal disorder (principal); M85.89 Other specified disorders of bone density and structure, multiple sites
CPT/HCPCS: 77080

== ENCOUNTER → 2025-02-10 09:08 | Outpatient (CLI) | payer MEDICARE, SELFPAY ==
--- NOTE | 2025-02-10 09:09 | DI.MG.S_ITS ---
MM screening mammo BI: 02/10/2025. BI-RADS: 1 CLINICAL: 74-year old female for bilateral screening mammogram. Tyrer-Cuzick lifetime risk of 2.4%. No personal or first-degree family history of breast cancer. PRIOR EXAMS 02/08/2024, 02/06/2023, 02/02/2022, 02/01/2021, 01/28/2020, 11/15/2018, 11/13/2017, 10/24/2016, 12/07/2015. MAMMOGRAPHY TECHNIQUE: 2D and 3D (tomosynthesis) digital mammographic views obtained, with additional images as needed for full coverage. Current study was also evaluated with a Computer Aided Detection (CAD) system. DENSITY A. The breasts are almost entirely fatty. MAMMOGRAPHY FINDINGS Bilateral: No suspicious mass, asymmetry, microcalcification, or other abnormality seen. No significant change from comparison. IMPRESSION: * No evidence of malignancy. RECOMMENDATIONS Bilateral * Annual screening mammography. OVERALL ASSESSMENT CATEGORY BI-RADS-1: Negative. The [employer] recommends annual screening mammography beginning at age 40 for women with average risk of breast cancer. ELECTRONICALLY SIGNED: Virginia Morrison M.D. on 02/10/2025 at 04:25:27 PM PT Interpreting Station ID: [id number]
== END ==
LOC: MAMMO 09:09
PROVIDERS: PCP Family Medicine; Referring Provider Family Medicine; Visit Provider Family Medicine
DX: Z12.31 Encounter for screening mammogram for malignant neoplasm of breast (principal); R92.313 Mammographic fatty tissue density, bilateral breasts
CPT/HCPCS: 77063; 77067